=== PATIENT | male | born 1945 | race Caucasian/White ===

== ENCOUNTER → 2018-03-28 09:02 | Outpatient (CLI) | payer MEDICARE, OTHER, SELFPAY ==
[2018-03-28 10:39] LABS: Alanine Aminotransferase 36 IU/L (21-72); Albumin 3.8 g/dL (3.5-5.0); Albumin Globulin Ratio 1.5 (1.0-2.8); Alkaline Phosphatase 67 U/L (38-126); Aspartate Aminotransferase 23 IU/L (17-59); Bilirubin Total 0.9 mg/dL (0.2-1.3); Blood Urea Nitrogen 18 mg/dL (9-20); Calcium 9.3 mg/dL (8.4-10.2); Carbon Dioxide 26 mmol/L (22-32); Chloride 103 mmol/L (98-107); Cholesterol 177 mg/dL (140-199); Estimated Glomerular Filt Rate > 60.0 mL/min (>60); Globulin 2.6 g/dL (1.7-4.1); Glucose 103 mg/dL (80-110); HDL Cholesterol 57 mg/dL (40-60); HEMOLYSIS < 15 (0-50); LDL Cholesterol Calculated 103 mg/dL (<100); Potassium 4.3 mmol/L (3.4-5.1); Sodium 137 mmol/L (137-145); Total Protein 6.4 g/dL (6.3-8.2); Triglycerides 86 mg/dL (35-150)
[2018-03-28 11:03] LABS: Prostate Specific Antigen Scrn 0.576 ng/mL (0.1-4.0)
== END ==
PROVIDERS: PCP Family Medicine; Visit Provider Family Medicine
DX: Z13.1 Encounter for screening for diabetes mellitus (principal); E78.5 Hyperlipidemia, unspecified; Z12.5 Encounter for screening for malignant neoplasm of prostate
CPT/HCPCS: 36415; 80053; 80061; G0103

== ENCOUNTER 2018-04-29 09:26 | Emergency (ER) | payer MEDICARE, OTHER, SELFPAY ==
[2018-04-29 09:32] VITALS: BP 160/90; PULSE 57; RESP 18; TEMP 36.4; O2SAT 96
[2018-04-29 10:18] VITALS: BP 156/79; PULSE 59; RESP 18; O2SAT 100
--- NOTE | 2018-04-29 16:54 | ED_ITS ---
HPI - Extremity Injury (Lower) General Chief Complaint: Extremity Injury, Lower Stated Complaint: INJURED RIGHT LEG Time Seen by Provider: 04/29/18 09:28 Source: patient Mode of arrival: ambulatory Limitations: no limitations History of Present Illness HPI Narrative: 72-year-old male arrival mor choudhury presents with an abrasion to right anterior gandara suffered yesterday. It had been using a bit overnight and patient wanted to be checked to be sure he could still take his blood thinners. He denies any fever chills. He is not dizzy nor weak or lightheaded. complaint: leg injury Onset (ago): hour(s) Type of Injury: blunt Place: home Severity: mild Related Data Home Medications Medication Instructions Recorded Confirmed cyclosporine [Restasis] 1 drp OPH #0 11/23/17 03/28/18 clopidogrel 75 mg tablet 75 mg PO DAILY 03/28/18 03/28/18 lisinopril 5 mg tablet 5 mg PO DAILY 03/28/18 03/28/18 metoprolol succinate ER 100 mg 150 mg PO DAILY tab 03/28/18 03/28/18 tablet,extended release 24 hr pravastatin 80 mg tablet 80 mg PO DAILY 03/28/18 03/28/18 rivaroxaban 20 mg tablet 20 mg PO DAILY 03/28/18 03/28/18 Previous Rx's Medication Instructions Recorded varicella-zoster glycoE [id number] 0.5 ml IM ONCE #1 each 03/28/18 adj(PF) 50 mcg/0.5 mL IM susp, kit doxycycline hyclate 100 mg PO BID #20 tab 04/29/18 Allergies Allergy/AdvReac Type Severity Reaction Status Date / Time amoxicillin [AMOXICILLIN] Allergy Intermediate Unverified 03/28/18 08:30 cephalexin [From KEFLEX] Allergy Intermediate Unverified 03/28/18 08:30 erythromycin base Allergy Intermediate Unverified 03/28/18 08:30 [ERYTHROMYCIN BASE] Wlifome-Mep-Rdl Reductase Allergy Unknown leg pain Unverified 03/28/18 08:30 Inhibitor [[id number] REDUCTASE INHIBITOR] Review of Systems Review of Systems All systems reviewed & are unremarkable except as noted in HPI and below Constitutional Denies chills, Denies fever(s), Denies lethargy and Denies weakness Eyes Denies change in vision, Denies eye discharge, Denies irritation and Denies loss of vision ENT Ears, Nose, Mouth, and Throat: Denies change in voice, Denies neck pain and Denies sore throat Cardiovascular Denies chest pain, Denies irregular heart rhythm, Denies lightheadedness, Denies palpitations, Denies dyspnea, Denies dyspnea on exertion and Denies orthopnea Respiratory Denies cough, Denies dyspnea, Denies dyspnea on exertion and Denies wheezing Gastrointestinal Gastrointestinal: Denies abdominal pain, Denies change in bowel habits, Denies diarrhea, Denies nausea and Denies vomiting Genitourinary Denies hematuria, Denies flank pain, Denies urinary incontinence and Denies urinary urgency Musculoskeletal Denies neck pain Integumentary/Breasts Denies pruritus, Denies erythema, Denies rash and Reports wounds Neurologic Denies confusion, Denies loss of vision and Denies weakness Psychiatric Denies anxiety, Denies confusion, Denies depression, Denies homicidal ideation and Denies suicidal ideation Endocrine Denies palpitations Hematologic/Lymphatic Denies easy bruising Allergic/Immunologic Denies wheezing [facility] Medical History 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) Essential hypertension (11/23/17) History of malignant melanoma (11/23/17) Hyperlipidemia (11/23/17) Atrial fibrillation (Chronic ~11/2013) Hypertension (Chronic ~1979) Kidney stones (Chronic ~2013) Melanoma (Chronic ~2008) Rosacea (Chronic ~1959) Shoulder pain (Chronic ~2016) Chicken pox (Resolved ~1949) Measles (Resolved ~1949) Mumps (Resolved ~1949) Surgical History Arterial occlusion, lower extremity (Chronic) Anesthesia (Resolved) S/P CABG x 6 (Resolved) Status post arthroscopy (~11/2007) Family History Brother Age: 70 Hypertension High cholesterol Father Hypertension High cholesterol Mother Hypertension High cholesterol Sister Down syndrome Social History marital status: occupational status: other (retired) Smoking Status: Never smoker alcohol intake: current (occasional) substance use type: does not use Exam Narrative Exam Narrative: GEN: AOx3 and in mild distress EYES: Pupils are equal, round, and reactive to light and accommodation. Extraoccular muscles are intact bilaterally. There is no subconjunctival hemorrhage or exudate. CHEST: Lungs are clear to auscultation bilaterally and free of wheezes, rales, or rhonchi. Heart rate is regular rhythm, there are no murmurs, clicks, rubs, or gallops. There is no chest wall tenderness. ABD: Abdomen is soft and nontender. There is no guarding or rebound. Bowel sounds are normal in all 4 quadrants. There is no mass or organomegaly. EXT: Superficial abrasion with mild skin tear to right anterior gandara Full painless ROM of all extremities with no loss of sensation or strength. SKIN: Warm, pink, and dry. No erythema or rash Initial Vital Signs Initial Vital Signs: Vital Signs Temperature 97.5 F L 04/29/18 09:32 Pulse Rate 57 L 04/29/18 09:32 Respiratory Rate 18 04/29/18 09:32 Blood Pressure 160/90 H 04/29/18 09:32 Pulse Oximetry 96 04/29/18 09:32 Course Vital Signs - 8 hr 04/29/18 09:32 04/29/18 10:18 Temperature 97.5 F L Pulse Rate 57 L 59 L Respiratory Rate 18 18 Blood Pressure 160/90 H Blood Pressure [Right Arm] 156/79 H Pulse Oximetry 96 100 Discharge Plan Departure Patient Disposition: Home, Self-Care Clinical Impression: Abrasion Discharge Date/Time: 04/29/18 10:20 Interventions: ED Discharge Assessment Last Done: 04/29/18 10:19 Instructions: DI for Abrasion Activity Restrictions/Additional Instructions: *You have been diagnosed with [abrasion right lower extremity ] *What to do: *Take medications as directed: Take antibiotic prescription if he shows signs of infection such as worsening redness, swelling, drainage or other symptoms consistent with infection *Follow up with your primary care provider in 2-3 days, call for an appointment. Let them know you were seen in the Emergency Department and that we ask that you be seen in follow up *Return to ER if you should have any new, worsening or concerning symptoms Prescriptions: New doxycycline hyclate 100 mg tablet 100 mg PO BID Qty: 20 RF: 0 No Action cyclosporine [Restasis] 1 EACH dropperette 1 drp OPHTH Qty: 0 RF: 0 rivaroxaban [Xarelto] 20 mg tablet 20 mg PO DAILY RF: 0 metoprolol succinate 100 mg tablet extended release 24 hr 150 mg PO DAILY RF: 0 lisinopril 5 mg tablet 5 mg PO DAILY RF: 0 pravastatin 80 mg tablet 80 mg PO DAILY RF: 0 clopidogrel 75 mg tablet 75 mg PO DAILY RF: 0 varicella-zoster [id number] (PF) [Shingrix (PF)] 50 mcg/0.5 mL suspension for reconstitution 0.5 ml IM ONCE Qty: 1 RF: 1
== END 2018-04-29 10:20 | disposition home or self-care (01) ==
PROVIDERS: Emergency Provider Emergency Medicine; PCP Family Medicine
DX: S80.811A Abrasion, right lower leg, initial encounter (principal); W01.0XXA Fall on same level from slipping, tripping and stumbling without subsequent striking against object, initial encounter
CPT/HCPCS: 99282; 99283

== ENCOUNTER 2018-07-18 05:38 | Emergency (ER) | payer MEDICARE, OTHER, SELFPAY ==
[2018-07-18] VITALS (8 sets, daily range): BP systolic 123–152; BP diastolic 79–92; PULSE 52–61; RESP 12–20; TEMP 36.2; O2SAT 96–99; BMI 38.2
--- NOTE | 2018-07-18 06:39 | DI.US.S_ITS ---
PROCEDURE: US PERIPH VENOUS LOW EXTREM LT INDICATIONS: PAIN TECHNIQUE: Real-time imaging, as well as color and pulse Doppler interrogation, were performed of the lower extremity deep veins from the inguinal ligament to the popliteal fossa. COMPARISON: None. FINDINGS: The deep veins are normally compressible, and free of intraluminal thrombus. Color and pulse Doppler demonstrate normal phasic intraluminal flow. There is normal augmentation response to distal compression maneuver. IMPRESSION: No visualized deep venous thrombosis. Dictated by: Xin Hall M.D. on 07/18/2018 at 8:23 Approved by: Xin Hall M.D. on 07/18/2018 at 8:23
--- NOTE | 2018-07-18 06:39 | DI.US.S_ITS ---
PROCEDURE: US ARTERIAL DUPLEX LE LT INDICATIONS: PAIN; HX PAD WITH POPLITEAL STENT TECHNIQUE: Color and pulse Doppler interrogation was performed of the left lower extremity arterial system, with image documentation. COMPARISON: [facility], ARTERIAL LOW.EXTREMITY UNILAT., 10/06/2014, 11:51. [facility], ARTERIAL LOW.EXTREMITY UNILAT., 12/19/2015, 21:05. FINDINGS: Common femoral artery: 69 cm/sec, with triphasic flow. Deep femoral artery: 146 cm/sec, with biphasic flow. Proximal superficial femoral artery: 41 cm/sec, with biphasic flow. Mid superficial femoral artery: 27 cm/sec, with monophasic flow. Distal superficial femoral artery: 66 cm/sec, with biphasic flow. Popliteal artery: No visualized flow. Stent is noted. Posterior tibial artery: No visualized flow. Anterior tibial artery/dorsalis pedis: No visualized flow. Vasquez-scale imaging description: Distal superficial femoral/popliteal stent is present and appears occluded. Plaque is present IMPRESSION: 1. No visualized flow from the popliteal artery distally. Stent appears occluded. It is noted that overall study is relatively unchanged compared to 12/19/15 which demonstrated diminutive flow in the distal superficial femoral and no visualized flow within the popliteal posterior or anterior tibial arteries. In addition, no visualized flow is identified in the popliteal artery or anterior tibial artery with only minimal monophasic flow in the posterior tibial artery on 10/06/14. Dictated by: Xin Hall M.D. on 07/18/2018 at 8:23 Approved by: Xin Hall M.D. on 07/18/2018 at 8:28
[2018-07-18 07:20] LABS: BUN Creatinine Ratio 23.3 (6-22); Blood Urea Nitrogen 21 mg/dL (9-20); Calcium 8.6 mg/dL (8.4-10.2); Carbon Dioxide 22 mmol/L (22-32); Chloride 107 mmol/L (98-107); Estimated Glomerular Filt Rate > 60.0 mL/min (>60); Glucose 106 mg/dL (80-110); HEMOLYSIS < 15 (0-50); Potassium 4.2 mmol/L (3.4-5.1); Sodium 139 mmol/L (137-145)
--- NOTE | 2018-07-18 07:20 | ED.EXTPRO ---
HPI - Extremity Problem General Chief complaint: Extremity Problem,Nontraumatic Stated complaint: PAIN LEFT LEG, HAS HAD BLOOD CLOT BEFORE Time Seen by Provider: 07/18/18 06:06 Source: patient Mode of arrival: ambulatory Limitations: no limitations History of Present Illness HPI Narrative: patient is a 73-year-old male who is had a 4 vessel coronary artery bypass and also bilateral popliteal stents. Back in 2016 he had a femoral popliteal bypass in his right lower extremity secondary to stent failure in this leg. He has also had a stent failure in his left lower extremity that has required tPA. He states that last evening he started having pain in the front and the outside portion of his left lower extremity. He states that since the onset of the symptoms they have greatly improved. Denies any fevers or chest pain or shortness of breath. He is currently on Rivaroxaban and Plavix and has been taking these medications. Related Data Home Medications Medication Instructions Recorded Confirmed cyclosporine [Restasis] 1 drp OPHTH BID #0 11/23/17 07/18/18 rivaroxaban [Xarelto] 1 tab PO DAILY 07/18/18 07/18/18 Previous Rx's Medication Instructions Recorded pravastatin 80 mg tablet 80 mg PO DAILY #90 tab 05/16/18 clopidogrel 75 mg tablet 75 mg PO DAILY #30 tab 06/27/18 lisinopril 5 mg tablet 5 mg PO DAILY #30 tab 06/27/18 metoprolol succinate ER 100 mg 150 mg PO DAILY #60 tab 06/27/18 tablet,extended release 24 hr Allergies Allergy/AdvReac Type Severity Reaction Status Date / Time amoxicillin [AMOXICILLIN] Allergy Intermediate Unverified 05/05/18 11:51 cephalexin [From KEFLEX] Allergy Intermediate Unverified 05/05/18 11:51 erythromycin base Allergy Intermediate Unverified 05/05/18 11:51 [ERYTHROMYCIN BASE] Xvbjtdo-Ruo-Xuv Reductase Allergy Unknown leg pain Unverified 05/05/18 11:51 Inhibitor [SWFNDFI-REG-MAR REDUCTASE INHIBITOR] Review of Systems Constitutional Denies headache(s) ENT Ears, Nose, Mouth, and Throat: Denies headache(s) Cardiovascular Denies chest pain and Denies dyspnea Respiratory Denies dyspnea Gastrointestinal Gastrointestinal: Denies abdominal pain, Denies nausea and Denies vomiting Musculoskeletal Reports myalgias ( left calf muscle), Denies arthralgias, Reports muscle cramps and Denies numbness Integumentary/Breasts Denies lesions and Denies rash Neurologic Denies headache(s), Denies focal weakness, Denies numbness, Denies radicular pain and Denies paresthesias Hematologic/Lymphatic Comments: on anticoagulation [facility] Medical History Coronary artery disease involving [place] coronary artery of [place] heart without angina pectoris (11/23/17) Essential hypertension (11/23/17) History of malignant melanoma (11/23/17) Hyperlipidemia (11/23/17) Atrial fibrillation (Chronic ~11/2013) Hypertension (Chronic ~1979) Kidney stones (Chronic ~2013) Melanoma (Chronic ~2008) Rosacea (Chronic ~1959) Shoulder pain (Chronic ~2016) Chicken pox (Resolved ~1949) Measles (Resolved ~1949) Mumps (Resolved ~1949) Surgical History Arterial occlusion, lower extremity (Chronic) Anesthesia (Resolved) S/P CABG x 6 (Resolved) Status post arthroscopy (~11/2007) Family History Brother Age: 70 Hypertension High cholesterol Father Hypertension High cholesterol Mother Hypertension High cholesterol Sister Down syndrome Social History marital status: occupational status: other (retired) Smoking Status: Never smoker alcohol intake: current (occasional) substance use type: does not use Exam Initial Vital Signs Initial Vital Signs: Vital Signs Temperature 97.2 F L 07/18/18 05:54 Pulse Rate 61 07/18/18 05:54 Respiratory Rate 20 07/18/18 05:54 Blood Pressure 146/84 H 07/18/18 05:54 Pulse Oximetry 97 07/18/18 05:54 Const General: cooperative, healthy appearing, comfortable, well developed, well groomed and No acute distress Orientation: alert, awake and oriented x3 HENMT Head: normal to inspection and normocephalic Resp Effort & Inspection: normal respiratory effort Auscultation: clear to auscultation bilaterally Cardio Rate: regular rate Rhythm: regular rhythm Other: capillary refill 6 sec in the left lower extremity. Unable to palpate nor Doppler a DP pulse on the left. I was able to Doppler a posterior tibial pulse on the left. Skin Lesions: no lesions Rashes: no rashes Neuro Motor: muscle tone normal throughout Sensory Exam: no sensory deficits noted Extrem Left lower extremity: normal to inspection; abnormal capillary refill and no edema Psych Appearance: grossly normal and well kempt Course Orders Ordered: ED Orders 07/18/18 06:39 US arterial duplex LE LT Stat US periph venous low extrem lt Stat 07/18/18 06:56 Basic Metabolic Panel Stat Complete Blood Count AUTO DIFF Stat 07/18/18 08:31 CT angio abd aorta runoff Stat Heparin Sodium/Dextrose (Heparin Drip) 25,000 unit in 500 mls @ 37.557 mls/hr IV CONT BRIDGET; Protocol Last Admin: 07/18/18 11:13 Dose: 18 units/kg/hr, 37.557 mls/hr Discontinued Medications Heparin Sodium (Porcine) (Heparin) 5,000 unit IV NOW ONE Stop: 07/18/18 10:59 Last Admin: 07/18/18 11:13 Dose: 5,000 unit Sodium Chloride (Normal Saline 0.9%) 1,000 mls @ 1,000 mls/hr IV BOLUS ONE Stop: 07/18/18 08:49 Last Infusion: 07/18/18 09:29 Dose: 0 mls/hr Admin: 07/18/18 08:38 Dose: 1,000 mls/hr Vital Signs - 8 hr 07/18/18 05:54 07/18/18 06:24 07/18/18 08:17 Temperature 97.2 F L 97.2 F L Pulse Rate 61 61 56 L Pulse Rate [Left Posterior Tibial] Respiratory Rate 20 20 19 Blood Pressure [Right Arm] 146/84 H 123/79 Pulse Oximetry 97 97 96 07/18/18 08:56 07/18/18 09:28 07/18/18 11:31 Temperature Pulse Rate 52 L 54 L Pulse Rate [Left Posterior Tibial] 56 L Respiratory Rate 14 16 Blood Pressure [Right Arm] 152/79 H 131/92 H Pulse Oximetry 98 98 MDM - Extremity (Nontraumatic) Lab Data Result diagrams: 07/18/18 06:56 07/18/18 06:56 Lab Results 07/18/18 07/18/18 Range/Units 06:56 06:56 WBC 6.7 (4.5-11.0) X10^3/uL RBC 4.82 (4.5-5.9) X10^6/uL Hgb 15.5 (13.5-17.5) g/dL Hct 45.2 (41-53) % MCV 93.7 (80-100) fL MCH 32.2 (26-34) PG MCHC 34.4 (30-36) % RDW 12.7 (11.6-14.8) % Plt Count 151 (150-400) X10^3/uL Neut % (Auto) 67.0 (50-75) % Lymph % (Auto) 21.9 L (25-40) % [place] % (Auto) 9.4 (3-14) % Eos % (Auto) 1.3 L (2-4) % Baso % (Auto) 0.4 (0-2) % Neut # (Auto) 4500 (3271-7447) /uL Sodium 139 (137-145) mmol/L Potassium 4.2 (3.4-5.1) mmol/L Chloride 107 (98-107) mmol/L Carbon Dioxide 22 (22-32) mmol/L BUN 21 H (9-20) mg/dL Creatinine 0.90 (0.66-1.25) mg/dL Estimated GFR > 60.0 (>60) mL/min BUN/Creatinine Ratio 23.3 H (6-22) Glucose 106 (80-110) mg/dL Calcium 8.6 (8.4-10.2) mg/dL Imaging Data DVT ultrasound: Radiologist's impression: [address] [address] Ultrasound Report Signed Patient: Scott Hines#: [id number] : 4Acct:[id number] Age/Sex: 73 / MDate of Service: 07/18/18 Loc: ED Accession Number: [id number] Procedure: US periph venous low extrem lt Ordering Provider: Elva Llanes D.O. PROCEDURE: US PERIPH VENOUS LOW EXTREM LT INDICATIONS: PAIN TECHNIQUE: Real-time imaging, as well as color and pulse Doppler interrogation, were performed of the lower extremity deep veins from the inguinal ligament to the popliteal fossa. COMPARISON: None. FINDINGS: The deep veins are normally compressible, and free of intraluminal thrombus. Color and pulse Doppler demonstrate normal phasic intraluminal flow. There is normal augmentation response to distal compression maneuver. IMPRESSION: No visualized deep venous thrombosis. Dictated by: Xin Hall M.D. on 07/18/2018 at 8:23 Approved by: Xin Hall M.D. on 07/18/2018 at 8:23 arterial duplex ultrasound: Radiologist's impression: [address] [address] Ultrasound Report Signed Patient: Scott Hines#: [id number] : 4Acct:[id number] Age/Sex: 73 / MDate of Service: 07/18/18 Loc: ED Accession Number: [id number] Procedure: US arterial duplex LE LT Ordering Provider: Elva Llanes D.O. PROCEDURE: US ARTERIAL DUPLEX LE LT INDICATIONS: PAIN; HX PAD WITH POPLITEAL STENT TECHNIQUE: Color and pulse Doppler interrogation was performed of the left lower extremity arterial system, with image documentation. COMPARISON: [facility], ARTERIAL LOW.EXTREMITY UNILAT., 10/06/2014, 11:51. [facility], , ARTERIAL LOW.EXTREMITY UNILAT., 12/19/2015, 21:05. FINDINGS: Common femoral artery: 69 cm/sec, with triphasic flow. Deep femoral artery: 146 cm/sec, with biphasic flow. Proximal superficial femoral artery: 41 cm/sec, with biphasic flow. Mid superficial femoral artery: 27 cm/sec, with monophasic flow. Distal superficial femoral artery: 66 cm/sec, with biphasic flow. Popliteal artery: No visualized flow. Stent is noted. Posterior tibial artery: No visualized flow. Anterior tibial artery/dorsalis pedis: No visualized flow. Vasquez-scale imaging description: Distal superficial femoral/popliteal stent is present and appears occluded. Plaque is present IMPRESSION: 1. No visualized flow from the popliteal artery distally. Stent appears occluded. It is noted that overall study is relatively unchanged compared to 12/19/15 which demonstrated diminutive flow in the distal superficial femoral and no visualized flow within the popliteal posterior or anterior tibial arteries. In addition, no visualized flow is identified in the popliteal artery or anterior tibial artery with only minimal monophasic flow in the posterior tibial artery on 10/06/14. Dictated by: Xin Hall M.D. on 07/18/2018 at 8:23 Approved by: Xin Hall M.D. on 07/18/2018 at 8:28 CTA bilateral lower extremity: Radiologist's impression: PROCEDURE: CT ANGIO ABD AORTA RUNOFF INDICATIONS: Popliteal graft, 6 sec cap refill, calf pain left TECHNIQUE: After the administration of intravenous contrast, 2.5 mm sections acquired from S1 to the feet, with delayed image acquisition from the knees to the feet. 3-dimensional maximum intensity projection (MIP) coronal and sagittal reformats, and/or 3-dimensional volume rendering reformatting was then performed. For radiation dose reduction, the following was used: automated exposure control. COMPARISON: [facility], ARTERIAL LOW.EXTREMITY UNILAT., 10/06/2014, 11:51. [facility], US ARTERIAL DUPLEX LE LT, 07/18/2018, 7:27. FINDINGS: Image quality: Excellent. Extravascular pelvic structures: The visualized bowel loops are normal in caliber. There is colonic diverticulosis noted. The urinary bladder demonstrates normal wall thickness. No intraperitoneal free fluid visualized. No pelvic lymphadenopathy. Visualized osseous structures appear intact. There is a small fat-containing left inguinal hernia. The abdominal aorta, aortic bifurcation and proximal common iliac arteries were not included on the current study. Right lower extremity: The visualized common iliac artery demonstrates mild atherosclerotic plaque without focal high-grade stenosis. The external iliac artery is widely patent along its course. The internal iliac artery demonstrates mild multifocal atherosclerotic plaque without definite high-grade stenosis. The common femoral artery demonstrates mild calcified plaque without high-grade stenosis. The deep femoral artery there is patent proximally to the level of the mid femoral shaft where there is decreased enhancement suggestive of high-grade stenosis or occlusion. The superficial femoral artery demonstrates mild multifocal calcified plaque along its course. There is focal narrowing in the distal superficial femoral artery with approximately 50% stenosis. More distally, there is a popliteal bypass graft which appears patent and connects to the distal popliteal artery. The [place] bypassed popliteal artery is occluded with aneurysmal dilatation noted as well as an occluded stent. The tibialis anterior is widely patent proximally. There is multifocal narrowing along the course of the tibialis anterior which appears grossly patent to the level of the dorsalis pedis artery. The tibioperoneal trunk demonstrates calcified plaque distally with associated narrowing of less than 50%. The posterior tibial artery is patent along its course extending to ankle. The peroneal artery also appears patent to level of the distal tibia and fibula where there is nonvisualized enhancement suggestive of occlusion or high-grade stenosis. There is a two-vessel runoff at the level of the ankle. Left lower extremity: The visualized common iliac artery demonstrates calcified plaque with mild narrowing. The internal iliac artery demonstrates multifocal calcified and noncalcified plaque with a focal high-grade stenosis proximally . More distal segments and branches also demonstrate multifocal calcified plaque but appear grossly patent. The external iliac artery demonstrates mild multifocal plaque along its course without focal high-grade stenosis. The common femoral artery demonstrates mild calcified plaque without high-grade stenosis. The deep femoral artery appears patent along its course. The superficial femoral artery demonstrates multifocal calcified and noncalcified plaque along its course with progressive luminal narrowing beginning in the mid superficial femoral artery. The distal superficial femoral artery demonstrates non-enhancement consistent with occlusion. There is also occlusion of the popliteal artery. There is reconstitution of the tibialis anterior artery near its origin with multifocal narrowing along its course. The distal segment is not well opacified beginning at the level of the distal tibia compatible with high-grade stenosis or occlusion. There is also reconstitution of flow in the posterior tibial and peroneal arteries at their origins with mild multifocal narrowing along their courses. These appear grossly patent to the level of the ankle. There is a two-vessel runoff at the level of the ankle. IMPRESSION: 1. Progressive stenosis demonstrated in the left superficial femoral artery beginning in its mid segment with occlusion of the distal segment as well as occlusion of the popliteal artery. 2. Reconstitution of flow in the left tibialis anterior artery near its origin with multifocal narrowing along its course extending to the level of the distal tibia where there is subsequent probable occlusion. 3. Reconstitution of flow in the left posterior tibial and peroneal arteries which appear grossly patent to the level of the ankle. 4. Patent right popliteal bypass graft demonstrated. 5. Probable occlusion of the distal right peroneal artery at the level of the distal tibia. The tibialis anterior and posterior tibial arteries appear grossly patent at the level of the ankle. 6. Focal narrowing of approximately 50% in the distal right superficial femoral artery. Right deep femoral artery appears occluded at the level of the mid femur. Dictated by: Campbell Jordan M.D. on 07/18/2018 at 9:22 Approved by: Campbell Jordan M.D. on 07/18/2018 at 9:53 MDM Narrative Medical decision making narrative: patient with CT scan findings concerning for left popliteal artery occlusion. Discussed the case with BALDO Benavidez with the vascular surgery group at [facility]. I described the results of the CT scan to him. After this discussion and started the patient on heparin. He called back and stated that the patient could be transferred to [place]. Dr. Woods is the accepting provider. I discussed the transfer with the patient and his family who are bedside. They expressed understanding and agreement. Discharge Plan Departure Patient Disposition: [facility] Clinical Impression: Left popliteal artery occlusion Prescriptions: No Action cyclosporine [Restasis] 1 EACH drop[place] 1 drp OPHTH BID Qty: 0 RF: 0 pravastatin 80 mg tablet 80 mg PO DAILY Qty: 90 RF: 3 clopidogrel 75 mg tablet 75 mg PO DAILY Qty: 30 RF: 3 lisinopril 5 mg tablet 5 mg PO DAILY Qty: 30 RF: 3 metoprolol succinate 100 mg tablet extended release 24 hr 150 mg PO DAILY Qty: 60 RF: 3 rivaroxaban [Xarelto] 20 mg tablet 1 tab PO DAILY RF: 0
[2018-07-18 07:21] LABS: Add Manual Diff / Slide Review NO; Basophils Percent Auto 0.4 % (0-2); Eosinophils Percent Auto 1.3 % (2-4); Hematocrit 45.2 % (41-53); Hemoglobin 15.5 g/dL (13.5-17.5); Lymphocytes Percent Auto 21.9 % (25-40); Mean Corpuscular HGB Conc 34.4 % (30-36); Mean Corpuscular Hemoglobin 32.2 PG (26-34); Mean Corpuscular Volume 93.7 fL (80-100); Monocytes Percent Auto 9.4 % (3-14); Neutrophils Absolute Auto 4500 /uL (3000-5900); Platelet Count 151 X10^3/uL (150-400); Red Blood Cell Count 4.82 X10^6/uL (4.5-5.9); Red Cell Distribution Width 12.7 % (11.6-14.8); White Blood Cell Count 6.7 X10^3/uL (4.5-11.0)
--- NOTE | 2018-07-18 08:31 | DI.CT.S_ITS ---
PROCEDURE: CT ANGIO ABD AORTA RUNOFF INDICATIONS: Popliteal graft, 6 sec cap refill, calf pain left TECHNIQUE: After the administration of intravenous contrast, 2.5 mm sections acquired from S1 to the feet, with delayed image acquisition from the knees to the feet. 3-dimensional maximum intensity projection (MIP) coronal and sagittal reformats, and/or 3-dimensional volume rendering reformatting was then performed. For radiation dose reduction, the following was used: automated exposure control. COMPARISON: [facility], , ARTERIAL LOW.EXTREMITY UNILAT., 10/06/2014, 11:51. [facility], , US ARTERIAL DUPLEX LE LT, 07/18/2018, 7:27. FINDINGS: Image quality: Excellent. Extravascular pelvic structures: The visualized bowel loops are normal in caliber. There is colonic diverticulosis noted. The urinary bladder demonstrates normal wall thickness. No intraperitoneal free fluid visualized. No pelvic lymphadenopathy. Visualized osseous structures appear intact. There is a small fat-containing left inguinal hernia. The abdominal aorta, aortic bifurcation and proximal common iliac arteries were not included on the current study. Right lower extremity: The visualized common iliac artery demonstrates mild atherosclerotic plaque without focal high-grade stenosis. The external iliac artery is widely patent along its course. The internal iliac artery demonstrates mild multifocal atherosclerotic plaque without definite high-grade stenosis. The common femoral artery demonstrates mild calcified plaque without high-grade stenosis. The deep femoral artery there is patent proximally to the level of the mid femoral shaft where there is decreased enhancement suggestive of high-grade stenosis or occlusion. The superficial femoral artery demonstrates mild multifocal calcified plaque along its course. There is focal narrowing in the distal superficial femoral artery with approximately 50% stenosis. More distally, there is a popliteal bypass graft which appears patent and connects to the distal popliteal artery. The [place] bypassed popliteal artery is occluded with aneurysmal dilatation noted as well as an occluded stent. The tibialis anterior is widely patent proximally. There is multifocal narrowing along the course of the tibialis anterior which appears grossly patent to the level of the dorsalis pedis artery. The tibioperoneal trunk demonstrates calcified plaque distally with associated narrowing of less than 50%. The posterior tibial artery is patent along its course extending to ankle. The peroneal artery also appears patent to level of the distal tibia and fibula where there is nonvisualized enhancement suggestive of occlusion or high-grade stenosis. There is a two-vessel runoff at the level of the ankle. Left lower extremity: The visualized common iliac artery demonstrates calcified plaque with mild narrowing. The internal iliac artery demonstrates multifocal calcified and noncalcified plaque with a focal high-grade stenosis proximally . More distal segments and branches also demonstrate multifocal calcified plaque but appear grossly patent. The external iliac artery demonstrates mild multifocal plaque along its course without focal high-grade stenosis. The common femoral artery demonstrates mild calcified plaque without high-grade stenosis. The deep femoral artery appears patent along its course. The superficial femoral artery demonstrates multifocal calcified and noncalcified plaque along its course with progressive luminal narrowing beginning in the mid superficial femoral artery. The distal superficial femoral artery demonstrates non-enhancement consistent with occlusion. There is also occlusion of the popliteal artery. There is reconstitution of the tibialis anterior artery near its origin with multifocal narrowing along its course. The distal segment is not well opacified beginning at the level of the distal tibia compatible with high-grade stenosis or occlusion. There is also reconstitution of flow in the posterior tibial and peroneal arteries at their origins with mild multifocal narrowing along their courses. These appear grossly patent to the level of the ankle. There is a two-vessel runoff at the level of the ankle. IMPRESSION: 1. Progressive stenosis demonstrated in the left superficial femoral artery beginning in its mid segment with occlusion of the distal segment as well as occlusion of the popliteal artery. 2. Reconstitution of flow in the left tibialis anterior artery near its origin with multifocal narrowing along its course extending to the level of the distal tibia where there is subsequent probable occlusion. 3. Reconstitution of flow in the left posterior tibial and peroneal arteries which appear grossly patent to the level of the ankle. 4. Patent right popliteal bypass graft demonstrated. 5. Probable occlusion of the distal right peroneal artery at the level of the distal tibia. The tibialis anterior and posterior tibial arteries appear grossly patent at the level of the ankle. 6. Focal narrowing of approximately 50% in the distal right superficial femoral artery. Right deep femoral artery appears occluded at the level of the mid femur. Dictated by: Campbell Jordan M.D. on 07/18/2018 at 9:22 Approved by: Campbell Jordan M.D. on 07/18/2018 at 9:53
[2018-07-18] MEDS: SODIUM CHLORIDE 0.9% 1,000 ML 1000 ML IV (08:38)
[2018-07-18] MEDS: HEPARIN DRIP 25,000 UNIT/500 ML IV.SOLN 37.557 UNIT IV (11:13)
[2018-07-18] MEDS: HEPARIN 5,000 UNIT/ML VIAL 5000 UNIT IV (11:13)
== END 2018-07-18 13:20 | disposition short-term general hospital (02) ==
PROVIDERS: Emergency Medicine; Emergency Provider Emergency Medicine; PCP Family Medicine
DX: I70.202 Unspecified atherosclerosis of native arteries of extremities, left leg (principal)
CPT/HCPCS: 36591; 75635; 80048; 85025; 93926; 93971; 96361; 96365; 96366; 99284; 99285; J1644; Q9967

== ENCOUNTER 2019-04-18 20:02 | Emergency (ER) | payer MEDICARE, OTHER, SELFPAY ==
[2019-04-18 20:07] VITALS: BMI 30.9
[2019-04-18 20:15] VITALS: BP 146/66; PULSE 67; RESP 18; O2SAT 96
--- NOTE | 2019-04-18 20:16 | ED.EXTPRO ---
HPI - Extremity Problem <Lisa MoctezumaTYLOR - Last Filed: 04/18/19 21:56> General Chief complaint: Extremity Problem,Nontraumatic Stated complaint: rt elbow hot, swelling and pain Time Seen by Provider: 04/18/19 20:05 Source: patient Mode of arrival: ambulatory Limitations: no limitations History of Present Illness HPI Narrative: 73-year-old male with a history of hypertension, coronary artery disease, hyperlipidemia, and melanoma, presents emergency department today complaining of right elbow swelling, increased warmth, and slight dull 1/10 pain that is worse with pressure on the area starting this morning. She denies any trauma or previous injury to the area. He states he has had cellulitis before and this feels very similar. He denies any fevers, chills, nausea, vomiting, chest pain, shortness of breath, difficulty moving his arms, wrists, elbows, fingers, or hands. He denies any vision changes or headaches, he denies any autoimmune arthritis or gout. He states he has been applying ice to the area which has helped a little bit. MD Complaint: extremity swelling Onset (ago): hour(s) Pain Consistency: constant Location: right Severity scale (1-10): 1 Quality: aching Radiation: none Relieving factors: nothing Exacerbating factors: nothing Related Data Home Medications Medication Instructions Recorded Confirmed cyclosporine [Restasis] 1 drp OPHTH BID #0 11/23/17 07/18/18 Previous Rx's Medication Instructions Recorded pravastatin 80 mg tablet 80 mg PO DAILY #90 tab 05/16/18 clopidogrel 75 mg tablet 75 mg PO DAILY #90 tab 07/24/18 lisinopril 5 mg tablet 5 mg PO DAILY #90 tab 07/24/18 metoprolol succinate ER 100 mg 150 mg PO DAILY #135 tab 07/24/18 tablet,extended release 24 hr warfarin 2 mg tablet 2 mg PO DAILY #135 tab 07/24/18 doxycycline hyclate 100 mg PO BID 7 Days #14 tab 04/18/19 Allergies Allergy/AdvReac Type Severity Reaction Status Date / Time amoxicillin [AMOXICILLIN] Allergy Intermediate Verified 04/18/19 20:10 cephalexin [From KEFLEX] Allergy Intermediate Verified 04/18/19 20:10 erythromycin base Allergy Intermediate Verified 04/18/19 20:10 [ERYTHROMYCIN BASE] Clxggsp-Fjm-Sth Reductase Allergy Unknown leg pain Verified 04/18/19 20:10 Inhibitor [[id number] REDUCTASE INHIBITOR] Review of Systems <TYLOR Dodd - Last Filed: 04/18/19 21:56> Review of Systems REVIEW OF SYSTEMS: GENERAL: Denies fever or chills. HENT: No head trauma. EYES: No double vision or vision loss. CARDIOVASCULAR: No chest pain or syncope. RESPIRATORY: No shortness of breath or cough. GASTROINTESTINAL: No nausea, vomiting, diarrhea, or constipation. GENITOURINARY: No flank pain or dysuria. MUSCULOSKELETAL: Complains of right elbow pain, see HPI. INTEGUMENTARY: Complains of a erythema to right elbow, see HPI. NEURO: No numbness, tingling. PSYCH: No behavior or mood changes. PFSH <TYLOR Dodd - Last Filed: 04/18/19 21:56> Medical History Coronary artery disease involving [place] coronary artery of [place] heart without angina pectoris (11/23/17) Essential hypertension (11/23/17) History of malignant melanoma (11/23/17) Hyperlipidemia (11/23/17) Atrial fibrillation (Chronic ~11/2013) Hypertension (Chronic ~1979) Kidney stones (Chronic ~2013) Melanoma (Chronic ~2008) Rosacea (Chronic ~1959) Shoulder pain (Chronic ~2016) Chicken pox (Resolved ~1950) Measles (Resolved ~1950) Mumps (Resolved ~1950) Surgical History Arterial occlusion, lower extremity (Chronic) Anesthesia (Resolved) S/P CABG x 6 (Resolved) Status post arthroscopy (~11/2007) Family History Brother Age: 71 Hypertension High cholesterol Father Hypertension High cholesterol Mother Hypertension High cholesterol Sister Down syndrome Social History marital status: household members: spouse lives independently: Yes occupational status: other (retired) Smoking Status: Never smoker alcohol intake: current (occasional) substance use type: does not use Family History Brother Age: 71 Hypertension High cholesterol Father Hypertension High cholesterol Mother Hypertension High cholesterol Sister Down syndrome Social History marital status: household members: spouse lives independently: Yes occupational status: other (retired) Smoking Status: Never smoker alcohol intake: current (occasional) substance use type: does not use Exam <TYLOR Dodd - Last Filed: 04/18/19 21:56> Initial Vital Signs Initial Vital Signs: Vital Signs Pulse Rate 67 04/18/19 20:15 Respiratory Rate 18 04/18/19 20:15 Blood Pressure 146/66 H 04/18/19 20:15 Pulse Oximetry 96 04/18/19 20:15 PHYSICAL EXAMINATION: GENERAL: Well groomed, alert, and cooperative. Answers questions promptly and appropriately. Vital signs noted. HENT: Normocephalic, atraumatic. RESPIRATORY: Normal respiratory rate, trachea midline, airway patent. No stridor, nasal flaring or accessory muscle use. MUSCULOSKELETAL: Right elbow exists if it is 10 cm in diameter area of erythema, bursitis is intact without inflammation, patient exhibits full range of motion of elbow, wrist, and shoulder without pain or rigidity. No ecchymosis or lacerations. Normal gait and coordination. Equal tone and mass bilaterally. EXTREMITIES: CMS intact. Moves all extremities. SKIN: Warm, dry, soft, appropriate color for ethnicity. 10 cm in diameter erythema to right elbow. NEURO: Alert and Oriented X 3. Good coordination. PSYCH: Appropriate affect and mood. <Franco Read MD - Last Filed: 04/19/19 00:38> Initial Vital Signs Initial Vital Signs: Vital Signs Pulse Rate 67 04/18/19 20:15 Respiratory Rate 18 04/18/19 20:15 Blood Pressure 146/66 H 04/18/19 20:15 Pulse Oximetry 96 04/18/19 20:15 Course <TYLOR Dodd - Last Filed: 04/18/19 21:56> Orders Ordered: Discontinued Medications Doxycycline Hyclate (Vibramycin) 100 mg PO NOW ONE Stop: 04/18/19 20:15 Last Admin: 04/18/19 20:22 Dose: 100 mg Consultations Consultation #1: Patient was also evaluated by Dr. Read. Vital Signs - 8 hr 04/18/19 20:15 04/18/19 20:20 04/18/19 21:10 Temperature 98.4 F Pulse Rate 67 71 72 Respiratory Rate 18 20 20 Blood Pressure 130/59 L Blood Pressure [Left Arm] 146/66 H 148/86 H Pulse Oximetry 96 97 98 <Franco Read MD - Last Filed: 04/19/19 00:38> Orders Ordered: Discontinued Medications Doxycycline Hyclate (Vibramycin) 100 mg PO NOW ONE Stop: 04/18/19 20:15 Last Admin: 04/18/19 20:22 Dose: 100 mg Vital Signs - 8 hr 04/18/19 20:15 04/18/19 20:20 04/18/19 21:10 Temperature 98.4 F Pulse Rate 67 71 72 Respiratory Rate 18 20 20 Blood Pressure 130/59 L Blood Pressure [Left Arm] 146/66 H 148/86 H Pulse Oximetry 96 97 98 MDM - Extremity (Nontraumatic) <TYLOR Dodd - Last Filed: 04/18/19 21:56> MDM Narrative Medical decision making narrative: Differential includes cellulitis (most likely due to erythema, recent onset, lack of other systemic symptoms, history of cellulitis in the past), less likely fracture due to lack of traumatic injury, less likely sepsis due to lack of systemic symptoms such as fever, less likely bursitis due to lack of bursal swelling as well as patient retains full range of motion without pain.. Strict return precautions given and follow-up instructions discussed. Patient was given doxycycline as he stated this worked last time he had cellulitis and states that he is very allergic to other antibiotics as listed.. Discharge Plan Departure Patient Disposition: Home Clinical Impression: Cellulitis Qualifiers: Site of cellulitis: extremity Site of cellulitis of extremity: upper extremity Laterality: right Qualified Code(s): L03.113 - Cellulitis of right upper limb Discharge Date/Time: 04/18/19 21:20 Interventions: ED Discharge Assessment Last Done: 04/18/19 21:10 Instructions: DI for Cellulitis -- Adult Activity Restrictions/Additional Instructions: Thank you for entrusting me with your care today. As discussed, appears you have an infection of the skin on your right elbow. I prescribed you doxycycline. Please take as directed and follow up with her primary care provider in the next week to ensure that you are getting better. Please follow-up with her anticoagulation clinic in the next few days as this antibiotic may interfere with your warfarin. Return to the emergency department if you develop fevers, chest pain, shortness of breath, increased redness, severe pain, shortness of breath, or swelling of your mouth or tongue. Prescriptions: New doxycycline hyclate 100 mg tablet 100 mg PO BID 7 Days Qty: 14 RF: 0 No Action cyclosporine [Restasis] 1 EACH dropperette 1 drp OPHTH BID Qty: 0 RF: 0 pravastatin 80 mg tablet 80 mg PO DAILY Qty: 90 RF: 3 warfarin 2 mg tablet 2 mg PO DAILY Qty: 135 RF: 3 metoprolol succinate 100 mg tablet extended release 24 hr 150 mg PO DAILY Qty: 135 RF: 3 lisinopril 5 mg tablet 5 mg PO DAILY Qty: 90 RF: 3 clopidogrel 75 mg tablet 75 mg PO DAILY Qty: 90 RF: 3 Referrals: Shelli Rizo DO [Primary Care Provider] - <Franco Read MD - Last Filed: 04/19/19 00:38> Cosign ED Attending Cosrubyature Attestation: I was present in the ER at the time of the patient's care. I evaluated the patient in conjunction with the treatment rendered by TYLOR Moctezuma. I agree with the assessment and treatment plan.
[2019-04-18 20:20] VITALS: BP 148/86; PULSE 71; RESP 20; TEMP 36.9; O2SAT 97
[2019-04-18] MEDS: DOXYCYCLINE HYCLATE 100 MG TABLET PO (20:22)
[2019-04-18 21:10] VITALS: BP 130/59; PULSE 72; RESP 20; O2SAT 98
== END 2019-04-18 21:20 | disposition home or self-care (01) ==
PROVIDERS: Emergency Provider Nurse Practitioner; Family Provider Family Medicine; PCP Family Medicine
DX: L03.113 Cellulitis of right upper limb (principal)
CPT/HCPCS: 99282; 99283

== ENCOUNTER → 2019-05-12 08:33 | Outpatient (CLI) | payer MEDICARE, OTHER, SELFPAY ==
--- NOTE | 2019-05-12 08:39 | DI.MRI.S_ITS ---
PROCEDURE: MR CERVICAL SPINE WO CON INDICATIONS: neck pain with radiculopathy TECHNIQUE: Noncontrast sagittal T1 spin echo and T2 fast spin echo, sagittal STIR, foraminal oblique sagittal T2 fast spin echo, and axial gradient echo or T2 fast spin echo through the cervical spine. COMPARISON: None. FINDINGS: Image quality: Excellent. Alignment and Curvature: There is normal bony alignment. Bone Marrow: Marrow demonstrates normal overall signal. Spinal Cord: Visualized spinal cord has normal size and signal. No cerebellar tonsillar herniation. Paraspinous Soft Tissues: No paravertebral masses. Prevertebral soft tissues are normal in thickness. C2-C3: Mild disc desiccation. Mild diffuse disc bulge. Central annular tear. Minimal canal stenosis. No foraminal stenosis. C3-C4: Mild disc desiccation. Mild diffuse disc bulge. Mild canal stenosis. No foraminal stenosis. C4-C5: Mild disc height loss and desiccation. Mild diffuse disc bulge. Mild bilateral facet and uncovertebral hypertrophy. Mild canal stenosis. Mild bilateral foraminal stenosis. C5-C6: Mild disc height loss and desiccation. Mild diffuse disc bulge. Moderate facet and uncovertebral hypertrophy bilaterally. Mild canal stenosis. Moderate bilateral foraminal stenosis. C6-C7: Mild disc height loss and desiccation. Mild diffuse disc bulge. Mild facet and uncovertebral hypertrophy bilaterally. Mild canal stenosis. Moderate left and mild right foraminal stenosis. C7-T1: Mild disc desiccation. Mild diffuse disc bulge. Mild facet and uncovertebral hypertrophy bilaterally. Mild canal stenosis. Mild left foraminal stenosis. No right foraminal stenosis. IMPRESSION: 1. Multilevel degenerative disc and facet disease, as well as uncovertebral hypertrophy. 2. Mild multilevel canal stenoses. 3. Multilevel foraminal stenoses, worst at C5-C6 and C6-C7 where there are moderate foraminal stenoses as described above. Dictated by: Sierra Reagan M.D. on 05/14/2019 at 8:18 Approved by: Seirra Reagan M.D. on 05/14/2019 at 9:06
== END ==
PROVIDERS: Family Provider Family Medicine; PCP Family Medicine; Visit Provider Nurse Practitioner
DX: M48.02 Spinal stenosis, cervical region (principal); M54.10 Radiculopathy, site unspecified
CPT/HCPCS: 72141

== ENCOUNTER 2019-07-11 08:15 | Outpatient (RCR) | payer MEDICARE, OTHER, SELFPAY ==
--- NOTE | 2019-06-19 11:11 | PT.OIE ---
Current Diagnoses Pain in right wrist (06/19/19) Cervicalgia (06/19/19) Pain in right arm (06/19/19) Abnormal posture (06/19/19) Weakness (06/19/19) Past Medical History (Last Reviewed 04/24/19 @ 14:23 by Shelli Rizo DO) Atrial fibrillation (Chronic ~11/2013) Chicken pox (Resolved ~1949) Coronary artery disease involving [place] coronary artery of [place] heart without angina pectoris (11/23/17) Essential hypertension (11/23/17) History of malignant melanoma (11/23/17) Hyperlipidemia (11/23/17) Hypertension (Chronic ~1979) Kidney stones (Chronic ~2013) Measles (Resolved ~1949) Melanoma (Chronic ~2008) Mumps (Resolved ~1949) Rosacea (Chronic ~1959) Shoulder pain (Chronic ~2016) Past Surgical History (Last Reviewed 04/24/19 @ 14:23 by Shelli Rizo DO) Anesthesia (Resolved) Arterial occlusion, lower extremity (Chronic) S/P CABG x 6 (Resolved) Status post arthroscopy (~11/2007) Visit Care Team Role Provider Type Shelli Rizo DO Family Provider Physician Primary Care Provider Specialty: [facility] Address: [address] [place] [address], [facility] Email: [email or web address] TYLOR Norris Attending Provider Advanced Visualizer Specialty: [facility] Address: [address] [place] [address], [facility] Email: [email or web address] Physical Therapy Initial Evaluation PT-OP-A Visit Information Start: 06/19/19 08:10 Freq: Status: Active Protocol: Document 06/19/19 11:11 LIA (Rec: 06/19/19 11:16 SAK [id number]) Out-Patient Physical Therapy Visit Information Visit Information Visit Type Initial Evaluation Visit Start Time 11:11 Visit Stop Time 12:01 Total Visit Minutes 50 Visit Number 1 Evaluation Information Evaluation Date 06/19/19 Precautions Precautions PMH: CABG PT-OP-B Current Condition Start: 06/19/19 08:10 Freq: Status: Active Protocol: Document 06/19/19 11:11 [facility] (Rec: 06/20/19 09:17 [facility] [id number]) Current Condition History of Current Condition Onset Date Years Current Complaints right UE pain History of Current Condition Patient reports worsening right UE pain which is intermittant; minimal in AM but increases as day progresses to severe at times toward end of day especially with increase in activity. Pain has distribution which patient reports seems to start in his lower arm/wrist (volar surface), and extend into his first 2 digits and up his arm into right side of neck when most severe. Patient reports he uses ice and Ibuprofen at night to cut the pain, but is only mildly helpful and when pain at worst unable to use right UE. 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 Prior Treatments and Tests MRI of cervical spine shows: 1. Multilevel degenerative disc and facet disease, as well as uncovertebral hypertrophy. 2. Mild multilevel canal stenoses. 3. Multilevel foraminal stenoses, worst at C5-C6 and C6-C7 where there are moderate foraminal stenoses as described above. Future Testing and Treatments Planned None at this time Treatment Goals Patient/Caregiver Goals Decrease pain and dysfunction right UE Prior Functional Status Baseline Function- ADL's Independent Baseline Function- Mobility Independent Baseline Function- Work/School no pain or dysfunction Current Functional Impairments (Reported) Functional Limitations- ADL's pain as day progresses Functional Limitations- Work/School pain as day progresses PT-OP-C Subjective Start: 06/19/19 08:10 Freq: Status: Active Protocol: Document 06/19/19 11:11 [facility] (Rec: 06/20/19 09:17 [facility] [id number]) Patient Questionnaires Quick Dash- Upper Extremity Quick Dash UE Score 14% OP-PT Pain Assessment Pain Assessment Grid Paper Pain Assessment Grid Completed Yes Location right UE Pain Location Details right cervical spine, UE and hand Intensity 8 Scale Used Numeric (1 - 10) Description Burning,Shooting Frequency Frequent Pain Aggravating Factors Activity Pain Alleviating Factors Cold,Medication Home Pain Medication Use Pain Medications Used Yes Home Pain Medication Frequency every evening Patient Goal No medication Comments Pain Comments No pain during eval due to am PT-OP-H Neuro Start: 06/19/19 08:10 Freq: Status: Active Protocol: Document 06/19/19 11:11 [facility] (Rec: 06/20/19 09:17 [facility] [id number]) Sensation Evaluation Gross Sensation Gross Sensation WNL PT-OP-J Posture/Palpation/Skin Start: 06/19/19 08:10 Freq: Status: Active Protocol: Document 06/19/19 11:11 [facility] (Rec: 06/20/19 09:17 [facility] [id number]) Posture Evaluation Position Sitting Head/C-Spine Posture Forward Head T-Spine Posture Increased Kyphosis Shoulder Posture (L) Rounded,(R) Rounded,(L) Forward,(R) Forward Scapula Posture (L) Protracted,(R) Protracted Comments Posture Comments Dowagers hump with tissue thickening upper thoracic spine with hinging at C6-C7 Palpation Assessment Location right UE Palpation Details no tenderness elicited. Palpable tightness right upper trap cervical spine Palpation Findings Soft Tissue Tightness Palpation Details right greater than left PT-OP-L Special Tests Start: 06/19/19 08:10 Freq: Status: Active Protocol: Document 06/19/19 11:11 [facility] (Rec: 06/20/19 09:17 [facility] [id number]) Special Tests Cervical Spine Special Tests Slump Test Results negative simone Passive Neck Flexion Test Results negative simone Foraminal Compression Test Results positive right Neural Special Tests- Upper Body Ulnar Nerve Tension Test Results positive right Median Nerve Tension Test Results positive right PT-OP-M Strength Start: 06/19/19 08:10 Freq: Status: Active Protocol: Document 06/19/19 11:11 [facility] (Rec: 06/20/19 09:17 [facility] [id number]) Shoulder Strength Shoulder Manual Muscle Testing Right Flexion 5 Normal Extension 5 Normal Abduction (C5) 5 Normal External Rotation 4 Good Internal Rotation 4+ Good+ Left Flexion 5 Normal Extension 5 Normal Abduction (C5) 5 Normal Adduction 5 Normal External Rotation 5 Normal Internal Rotation 5 Normal Elbow/Forearm Strength Elbow and Forearm Manual Muscle Testing Right Flexion (C6) 4+ Good+ Extension (C7) 4+ Good+ Left Flexion (C6) 5 Normal Extension (C7) 5 Normal Wrist Strength Wrist Manual Muscle Testing Right Flexion (C7) 4+ Good+ Extension (C6) 4+ Good+ Left Flexion (C7) 5 Normal Extension (C6) 5 Normal Hand Salon Stylist/Pinch Strength Hand Dominance Hand Dominance Right Hand Strength Right Salon Stylist (lbs) 63 Left Salon Stylist (lbs) 82 PT-OP-Q Treatments Start: 06/19/19 08:10 Freq: Status: Active Protocol: Document 06/19/19 11:11 [facility] (Rec: 06/20/19 09:17 [facility] [id number]) Self-Care/Home Management Treatment Education Patient Education Home Exercise Program,Posture Other Education Patient to self-evaluate usual activities with attention to postural alignment and body mechanics. PT-OP-R Modalities Start: 06/19/19 08:10 Freq: Status: Active Protocol: Document 06/19/19 11:11 [facility] (Rec: 06/20/19 09:17 [facility] [id number]) Hot Pack/Cold Pack Treatment cervical spine and right UE Patient Position Hooklying Treatment Duration (minutes) 15 Patient Tolerance Good Comments To improve softg tissue mobility PT-OP-T Assessment and Plan Start: 06/19/19 08:10 Freq: Status: Active Protocol: Document 06/19/19 11:11 [facility] (Rec: 06/20/19 09:17 [facility] [id number]) Physical Therapy Assessment Rehab Potential Rehabilitation Potential Good Evaluation Complexity Number of Personal Factors/Comorbidities 1-2 Number of Body Systems Impaired 3 Impairments Impairments Pain,Posture,Strength Goals Three Impairment weakness right shoulder ER 4-/ 5 and oracle database developer strength 63# (left 82) Short Term Goal (STG) Improve right shoulder ER strength by 1/2 grade and oracle database developer strength right by 10# STG Duration 08/03/19 Cylinder Steamer Goal (LTG) Improve right shoulder ER strength to 5/5 and oracle database developer strength to equal or greater than left LTG Duration 09/19/18 Two Impairment postural dysfunction with forward head, rounded shoulders Short Term Goal (STG) Instruct in neutral postural alignment with HEP and correct body mechanics to decrease nerve impingement STG Duration 08/03/19 Fdc Goal (LTG) Patient to demonstrate improved postural alignment and body mechanics with all usual activities and be independent and compliant with postural correction exercises One Impairment pain and dysfuction right UE Short Term Goal (STG) Decrease pain 50% and improve his ability to do his usual activities STG Duration 08/03/19 Cylinder Steamer Goal (LTG) Decrease pain by at least 75% to allow him to do all usual activities. LTG Duration 09/19/18 Assessment Summary Assessment Patient presents with function -limiting pain right UE and cervical spine. Impairments include postural dysfunction, soft tissue tightness, weakness in shoulder ER and oracle database developer on right. He has mildly positive nerve tension in median and ulnar nerves as well as positive cervical compression test. Feel his history of wrestling and Judo with multiple injuries likely contributing to nerve entrapment. Feel he would benefit from physical therapy to decrease his pain and allow him to return to his usual activities with minimal to no pain. Physical Therapy Plan Frequency and Duration Frequency of Treatment 2x/Week Duration of Treatment 12 wks Plan of Care Start Date 06/19/19 Plan of Care End Date 09/19/18 Therapeutic Interventions Therapeutic Interventions Home Exercise Program,Manual Therapy,Neuromuscular Re- education,Patient/Caregiver Education,Self-Care/Home Management,Soft Tissue Mobilization,Taping, Therapeutic Activities, Therapeutic Exercises Modalities Cold Pack/Ice Massage,Electric Stimulation,Hot Packs, Iontophoresis,Traction- Mechanical,Ultrasound Next Visit Focus/Plan Next Note Type Treatment Note Next Visit Plan Review HEP, discuss patient's self-evaluation of posture and body mechanics after today's instruction, progress ther ex adding postural isometric, reach and roll, row with theraband, soft tissue mobilization of c/s, upper thoracic, and upper trap.
--- NOTE | 2019-06-19 11:11 | PT.OPPOC ---
Current Diagnoses Pain in right wrist (06/19/19) Cervicalgia (06/19/19) Pain in right arm (06/19/19) Abnormal posture (06/19/19) Weakness (06/19/19) Visit Care Team Role Provider Type Shelli Rizo DO Family Provider Physician Primary Care Provider Specialty: [facility] Practice Address: [address] [place] [address], [place], [address] Email: [email or web address] TYLOR Norris Attending Provider Advanced Clearing Hand Specialty: [facility] Address: [address] [place] [address], [address] Email: [email or web address] Plan Of Care PT-OP-T Assessment and Plan Start: 06/19/19 08:10 Freq: Status: Active Protocol: Document 06/19/19 11:11 SAK (Rec: 06/20/19 09:17 [facility] [id number]) Physical Therapy Assessment Rehab Potential Rehabilitation Potential Good Evaluation Complexity Number of Personal Factors/Comorbidities 1-2 Number of Body Systems Impaired 3 Impairments Impairments Pain,Posture,Strength Goals Three Impairment weakness right shoulder ER 4-/ 5 and power grader operator strength 63# (left 82) Short Term Goal (STG) Improve right shoulder ER strength by 1/2 grade and power grader operator strength right by 10# STG Duration 08/03/19 Correction Goal (LTG) Improve right shoulder ER strength to 5/5 and power grader operator strength to equal or greater than left LTG Duration 09/19/18 Two Impairment postural dysfunction with forward head, rounded shoulders Short Term Goal (STG) Instruct in neutral postural alignment with HEP and correct body mechanics to decrease nerve impingement STG Duration 08/03/19 Correction Goal (LTG) Patient to demonstrate improved postural alignment and body mechanics with all usual activities and be independent and compliant with postural correction exercises One Impairment pain and dysfuction right UE Short Term Goal (STG) Decrease pain 50% and improve his ability to do his usual activities STG Duration 08/03/19 Correction Goal (LTG) Decrease pain by at least 75% to allow him to do all usual activities. LTG Duration 09/19/18 Assessment Summary Assessment Patient presents with function -limiting pain right UE and cervical spine. Impairments include postural dysfunction, soft tissue tightness, weakness in shoulder ER and power grader operator on right. He has mildly positive nerve tension in median and ulnar nerves as well as positive cervical compression test. Feel his history of wrestling and Judo with multiple injuries likely contributing to nerve entrapment. Feel he would benefit from physical therapy to decrease his pain and allow him to return to his usual activities with minimal to no pain. Physical Therapy Plan Frequency and Duration Frequency of Treatment 2x/Week Duration of Treatment 12 wks Plan of Care Start Date 06/19/19 Plan of Care End Date 09/19/18 Therapeutic Interventions Therapeutic Interventions Home Exercise Program,Manual Therapy,Neuromuscular Re- education,Patient/Caregiver Education,Self-Care/Home Management,Soft Tissue Mobilization,Taping, Therapeutic Activities, Therapeutic Exercises Modalities Cold Pack/Ice Massage,Electric Stimulation,Hot Packs, Iontophoresis,Traction- Mechanical,Ultrasound Next Visit Focus/Plan Next Note Type Treatment Note Next Visit Plan Review HEP, discuss patient's self-evaluation of posture and body mechanics after today's instruction, progress ther ex adding postural isometric, reach and roll, row with theraband, soft tissue mobilization of c/s, upper thoracic, and upper trap. Plan of Care Dates Plan of Care Start Date 06/19/19 Plan of Care End Date 09/19/18
--- NOTE | 2019-06-20 10:20 | PT.OIE ---
Current Diagnoses Pain in right wrist (06/19/19) Cervicalgia (06/19/19) Pain in right arm (06/19/19) Abnormal posture (06/19/19) Weakness (06/19/19) Past Medical History (Last Reviewed 04/24/19 @ 14:23 by Shelli Rizo DO) Atrial fibrillation (Chronic ~11/2013) Chicken pox (Resolved ~1949) Coronary artery disease involving [place] coronary artery of [place] heart without angina pectoris (11/23/17) Essential hypertension (11/23/17) History of malignant melanoma (11/23/17) Hyperlipidemia (11/23/17) Hypertension (Chronic ~1979) Kidney stones (Chronic ~2013) Measles (Resolved ~1949) Melanoma (Chronic ~2008) Mumps (Resolved ~1949) Rosacea (Chronic ~1959) Shoulder pain (Chronic ~2016) Past Surgical History (Last Reviewed 04/24/19 @ 14:23 by Shelli Rizo DO) Anesthesia (Resolved) Arterial occlusion, lower extremity (Chronic) S/P CABG x 6 (Resolved) Status post arthroscopy (~11/2007) Visit Care Team Role Provider Type Shelli Rizo DO Family Provider Physician Primary Care Provider Specialty: [facility] Address: [address] [place] [address], [facility] Email: [email or web address] TYLOR Norris Attending Provider Advanced Lamination Machine Operator Specialty: [facility] Address: [address] [place] [address], [facility] Email: [email or web address] Physical Therapy Initial Evaluation PT-OP-A Visit Information Start: 06/19/19 08:10 Freq: Status: Active Protocol: Document 06/19/19 11:11 LIA (Rec: 06/19/19 11:16 SAK [id number]) Out-Patient Physical Therapy Visit Information Visit Information Visit Type Initial Evaluation Visit Start Time 11:11 Visit Stop Time 12:01 Total Visit Minutes 50 Visit Number 1 Evaluation Information Evaluation Date 06/19/19 Precautions Precautions PMH: CABG PT-OP-B Current Condition Start: 06/19/19 08:10 Freq: Status: Active Protocol: Document 06/19/19 11:11 [facility] (Rec: 06/20/19 09:17 [facility] [id number]) Current Condition History of Current Condition Onset Date Years Current Complaints right UE pain History of Current Condition Patient reports worsening right UE pain which is intermittant; minimal in AM but increases as day progresses to severe at times toward end of day especially with increase in activity. Pain has distribution which patient reports seems to start in his lower arm/wrist (volar surface), and extend into his first 2 digits and up his arm into right side of neck when most severe. Patient reports he uses ice and Ibuprofen at night to cut the pain, but is only mildly helpful and when pain at worst unable to use right UE. 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 Prior Treatments and Tests MRI of cervical spine shows: 1. Multilevel degenerative disc and facet disease, as well as uncovertebral hypertrophy. 2. Mild multilevel canal stenoses. 3. Multilevel foraminal stenoses, worst at C5-C6 and C6-C7 where there are moderate foraminal stenoses as described above. Future Testing and Treatments Planned None at this time Treatment Goals Patient/Caregiver Goals Decrease pain and dysfunction right UE Prior Functional Status Baseline Function- ADL's Independent Baseline Function- Mobility Independent Baseline Function- Work/School no pain or dysfunction Current Functional Impairments (Reported) Functional Limitations- ADL's pain as day progresses Functional Limitations- Work/School pain as day progresses PT-OP-C Subjective Start: 06/19/19 08:10 Freq: Status: Active Protocol: Document 06/19/19 11:11 [facility] (Rec: 06/20/19 09:17 [facility] [id number]) Patient Questionnaires Quick Dash- Upper Extremity Quick Dash UE Score 14% OP-PT Pain Assessment Pain Assessment Grid Paper Pain Assessment Grid Completed Yes Location right UE Pain Location Details right cervical spine, UE and hand Intensity 8 Scale Used Numeric (1 - 10) Description Burning,Shooting Frequency Frequent Pain Aggravating Factors Activity Pain Alleviating Factors Cold,Medication Home Pain Medication Use Pain Medications Used Yes Home Pain Medication Frequency every evening Patient Goal No medication Comments Pain Comments No pain during eval due to am PT-OP-H Neuro Start: 06/19/19 08:10 Freq: Status: Active Protocol: Document 06/19/19 11:11 [facility] (Rec: 06/20/19 09:17 [facility] [id number]) Sensation Evaluation Gross Sensation Gross Sensation WNL PT-OP-J Posture/Palpation/Skin Start: 06/19/19 08:10 Freq: Status: Active Protocol: Document 06/19/19 11:11 [facility] (Rec: 06/20/19 09:17 [facility] [id number]) Posture Evaluation Position Sitting Head/C-Spine Posture Forward Head T-Spine Posture Increased Kyphosis Shoulder Posture (L) Rounded,(R) Rounded,(L) Forward,(R) Forward Scapula Posture (L) Protracted,(R) Protracted Comments Posture Comments Dowagers hump with tissue thickening upper thoracic spine with hinging at C6-C7 Palpation Assessment Location right UE Palpation Details no tenderness elicited. Palpable tightness right upper trap cervical spine Palpation Findings Soft Tissue Tightness Palpation Details right greater than left PT-OP-L Special Tests Start: 06/19/19 08:10 Freq: Status: Active Protocol: Document 06/19/19 11:11 [facility] (Rec: 06/20/19 09:17 [facility] [id number]) Special Tests Cervical Spine Special Tests Slump Test Results negative simone Passive Neck Flexion Test Results negative simone Foraminal Compression Test Results positive right Neural Special Tests- Upper Body Ulnar Nerve Tension Test Results positive right Median Nerve Tension Test Results positive right PT-OP-M Strength Start: 06/19/19 08:10 Freq: Status: Active Protocol: Document 06/19/19 11:11 [facility] (Rec: 06/20/19 09:17 [facility] [id number]) Shoulder Strength Shoulder Manual Muscle Testing Right Flexion 5 Normal Extension 5 Normal Abduction (C5) 5 Normal External Rotation 4 Good Internal Rotation 4+ Good+ Left Flexion 5 Normal Extension 5 Normal Abduction (C5) 5 Normal Adduction 5 Normal External Rotation 5 Normal Internal Rotation 5 Normal Elbow/Forearm Strength Elbow and Forearm Manual Muscle Testing Right Flexion (C6) 4+ Good+ Extension (C7) 4+ Good+ Left Flexion (C6) 5 Normal Extension (C7) 5 Normal Wrist Strength Wrist Manual Muscle Testing Right Flexion (C7) 4+ Good+ Extension (C6) 4+ Good+ Left Flexion (C7) 5 Normal Extension (C6) 5 Normal Hand Infant Nanny/Pinch Strength Hand Dominance Hand Dominance Right Hand Strength Right Infant Nanny (lbs) 63 Left Infant Nanny (lbs) 82 PT-OP-Q Treatments Start: 06/19/19 08:10 Freq: Status: Active Protocol: Document 06/19/19 11:11 [facility] (Rec: 06/20/19 09:17 [facility] [id number]) Self-Care/Home Management Treatment Education Patient Education Home Exercise Program,Posture Other Education Patient to self-evaluate usual activities with attention to postural alignment and body mechanics. PT-OP-R Modalities Start: 06/19/19 08:10 Freq: Status: Active Protocol: Document 06/19/19 11:11 [facility] (Rec: 06/20/19 09:17 [facility] [id number]) Hot Pack/Cold Pack Treatment cervical spine and right UE Patient Position Hooklying Treatment Duration (minutes) 15 Patient Tolerance Good Comments To improve softg tissue mobility PT-OP-T Assessment and Plan Start: 06/19/19 08:10 Freq: Status: Active Protocol: Document 06/19/19 11:11 [facility] (Rec: 06/20/19 09:17 [facility] [id number]) Physical Therapy Assessment Rehab Potential Rehabilitation Potential Good Evaluation Complexity Number of Personal Factors/Comorbidities 1-2 Number of Body Systems Impaired 3 Impairments Impairments Pain,Posture,Strength Goals Three Impairment weakness right shoulder ER 4-/ 5 and intelligence director strength 63# (left 82) Short Term Goal (STG) Improve right shoulder ER strength by 1/2 grade and intelligence director strength right by 10# STG Duration 08/03/19 Automotive Teacher Goal (LTG) Improve right shoulder ER strength to 5/5 and intelligence director strength to equal or greater than left LTG Duration 09/19/18 Two Impairment postural dysfunction with forward head, rounded shoulders Short Term Goal (STG) Instruct in neutral postural alignment with HEP and correct body mechanics to decrease nerve impingement STG Duration 08/03/19 [facility] Goal (LTG) Patient to demonstrate improved postural alignment and body mechanics with all usual activities and be independent and compliant with postural correction exercises One Impairment pain and dysfuction right UE Short Term Goal (STG) Decrease pain 50% and improve his ability to do his usual activities STG Duration 08/03/19 Automotive Teacher Goal (LTG) Decrease pain by at least 75% to allow him to do all usual activities. LTG Duration 09/19/18 Assessment Summary Assessment Patient presents with function -limiting pain right UE and cervical spine. Impairments include postural dysfunction, soft tissue tightness, weakness in shoulder ER and intelligence director on right. He has mildly positive nerve tension in median and ulnar nerves as well as positive cervical compression test. Feel his history of wrestling and Judo with multiple injuries likely contributing to nerve entrapment. Feel he would benefit from physical therapy to decrease his pain and allow him to return to his usual activities with minimal to no pain. Physical Therapy Plan Frequency and Duration Frequency of Treatment 2x/Week Duration of Treatment 12 wks Plan of Care Start Date 06/19/19 Plan of Care End Date 09/19/18 Therapeutic Interventions Therapeutic Interventions Home Exercise Program,Manual Therapy,Neuromuscular Re- education,Patient/Caregiver Education,Self-Care/Home Management,Soft Tissue Mobilization,Taping, Therapeutic Activities, Therapeutic Exercises Modalities Cold Pack/Ice Massage,Electric Stimulation,Hot Packs, Iontophoresis,Traction- Mechanical,Ultrasound Next Visit Focus/Plan Next Note Type Treatment Note Next Visit Plan Review HEP, discuss patient's self-evaluation of posture and body mechanics after today's instruction, progress ther ex adding postural isometric, reach and roll, row with theraband, soft tissue mobilization of c/s, upper thoracic, and upper trap.
--- NOTE | 2019-06-20 10:20 | PT.OPPOC ---
Current Diagnoses Pain in right wrist (06/19/19) Cervicalgia (06/19/19) Pain in right arm (06/19/19) Abnormal posture (06/19/19) Weakness (06/19/19) Visit Care Team Role Provider Type Shelli Rizo DO Family Provider Physician Primary Care Provider Specialty: [facility] Practice Address: [address] [place] [address], [place], [address] Email: [email or web address] TYLOR Norris Attending Provider Advanced Tobacco Wetter Specialty: [facility] Address: [address] [place] [address], [address] Email: [email or web address] Plan Of Care PT-OP-T Assessment and Plan Start: 06/19/19 08:10 Freq: Status: Active Protocol: Document 06/19/19 11:11 [facility] (Rec: 06/20/19 09:17 [facility] [id number]) Physical Therapy Assessment Rehab Potential Rehabilitation Potential Good Evaluation Complexity Number of Personal Factors/Comorbidities 1-2 Number of Body Systems Impaired 3 Impairments Impairments Pain,Posture,Strength Goals Three Impairment weakness right shoulder ER 4-/ 5 and tapeman strength 63# (left 82) Short Term Goal (STG) Improve right shoulder ER strength by 1/2 grade and tapeman strength right by 10# STG Duration 08/03/19 Halfway Goal (LTG) Improve right shoulder ER strength to 5/5 and tapeman strength to equal or greater than left LTG Duration 09/19/18 Two Impairment postural dysfunction with forward head, rounded shoulders Short Term Goal (STG) Instruct in neutral postural alignment with HEP and correct body mechanics to decrease nerve impingement STG Duration 08/03/19 Halfway Goal (LTG) Patient to demonstrate improved postural alignment and body mechanics with all usual activities and be independent and compliant with postural correction exercises One Impairment pain and dysfuction right UE Short Term Goal (STG) Decrease pain 50% and improve his ability to do his usual activities STG Duration 08/03/19 Halfway Goal (LTG) Decrease pain by at least 75% to allow him to do all usual activities. LTG Duration 09/19/18 Assessment Summary Assessment Patient presents with function -limiting pain right UE and cervical spine. Impairments include postural dysfunction, soft tissue tightness, weakness in shoulder ER and tapeman on right. He has mildly positive nerve tension in median and ulnar nerves as well as positive cervical compression test. Feel his history of wrestling and Judo with multiple injuries likely contributing to nerve entrapment. Feel he would benefit from physical therapy to decrease his pain and allow him to return to his usual activities with minimal to no pain. Physical Therapy Plan Frequency and Duration Frequency of Treatment 2x/Week Duration of Treatment 12 wks Plan of Care Start Date 06/19/19 Plan of Care End Date 09/19/18 Therapeutic Interventions Therapeutic Interventions Home Exercise Program,Manual Therapy,Neuromuscular Re- education,Patient/Caregiver Education,Self-Care/Home Management,Soft Tissue Mobilization,Taping, Therapeutic Activities, Therapeutic Exercises Modalities Cold Pack/Ice Massage,Electric Stimulation,Hot Packs, Iontophoresis,Traction- Mechanical,Ultrasound Next Visit Focus/Plan Next Note Type Treatment Note Next Visit Plan Review HEP, discuss patient's self-evaluation of posture and body mechanics after today's instruction, progress ther ex adding postural isometric, reach and roll, row with theraband, soft tissue mobilization of c/s, upper thoracic, and upper trap. Plan of Care Dates Plan of Care Start Date 06/19/19 Plan of Care End Date 09/19/18
--- NOTE | 2019-06-27 15:47 | PT.OTN ---
Addendum entered and electronically signed by Sidra Robbins PTA 07/03/19 09:57: THer ex performed : Level 2-3 TB ER/IR/lat pull down 3x10 each, DNF at wall 5 sec hold x5, scap retraction/depression 5 sec hold x10, finger flexion and extension x10 reps each with rubber band with cues for slow pacing and small range to decrease popping/grinding with reports of feels much better. Original Note: Current Diagnoses Pain in right wrist (06/27/19) Cervicalgia (06/27/19) Pain in right arm (06/27/19) Abnormal posture (06/27/19) Weakness (06/27/19) Physical Therapy Treatment Note PT-OP-A Visit Information Start: 06/19/19 08:10 Freq: Status: Active Protocol: Document 06/27/19 13:00 SP (Rec: 06/27/19 15:46 SP [email or web address]) Out-Patient Physical Therapy Visit Information Visit Information Visit Type Treatment Note Visit Start Time 13:00 Visit Stop Time 13:45 Total Visit Minutes 45 Visit Number 2 Number of FIRST ASSISTANT Visits 1 PT-OP-B Current Condition Start: 06/19/19 08:10 Freq: Status: Active Protocol: Document 06/19/19 11:11 SAK (Rec: 06/20/19 09:17 SAK [id number]) Current Condition History of Current Condition Onset Date Years Current Complaints right UE pain History of Current Condition Patient reports worsening right UE pain which is intermittant; minimal in AM but increases as day progresses to severe at times toward end of day especially with increase in activity. Pain has distribution which patient reports seems to start in his lower arm/wrist (volar surface), and extend into his first 2 digits and up his arm into right side of neck when most severe. Patient reports he uses ice and Ibuprofen at night to cut the pain, but is only mildly helpful and when pain at worst unable to use right UE. 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 Prior Treatments and Tests MRI of cervical spine shows: 1. Multilevel degenerative disc and facet disease, as well as uncovertebral hypertrophy. 2. Mild multilevel canal stenoses. 3. Multilevel foraminal stenoses, worst at C5-C6 and C6-C7 where there are moderate foraminal stenoses as described above. Future Testing and Treatments Planned None at this time Treatment Goals Patient/Caregiver Goals Decrease pain and dysfunction right UE Prior Functional Status Baseline Function- ADL's Independent Baseline Function- Mobility Independent Baseline Function- Work/School no pain or dysfunction Current Functional Impairments (Reported) Functional Limitations- ADL's pain as day progresses Functional Limitations- Work/School pain as day progresses PT-OP-C Subjective Start: 06/19/19 08:10 Freq: Status: Active Protocol: Document 06/27/19 13:00 SP (Rec: 06/27/19 15:46 SP [email or web address]) OP-PT Subjective Patient Comments Patient Comments Pt reported just having achy low level pain pre PT mainly A /P R shld. No changes or concerns since last visit. Patient Reported Progress Same PT-OP-H Neuro Start: 06/19/19 08:10 Freq: Status: Active Protocol: Document 06/19/19 11:11 SAK (Rec: 06/20/19 09:17 SAK [id number]) Sensation Evaluation Gross Sensation Gross Sensation WNL PT-OP-J Posture/Palpation/Skin Start: 06/19/19 08:10 Freq: Status: Active Protocol: Document 06/19/19 11:11 SAK (Rec: 06/20/19 09:17 SAK [id number]) Posture Evaluation Position Sitting Head/C-Spine Posture Forward Head T-Spine Posture Increased Kyphosis Shoulder Posture (L) Rounded,(R) Rounded,(L) Forward,(R) Forward Scapula Posture (L) Protracted,(R) Protracted Comments Posture Comments Dowagers hump with tissue thickening upper thoracic spine with hinging at C6-C7 Palpation Assessment Location right UE Palpation Details no tenderness elicited. Palpable tightness right upper trap cervical spine Palpation Findings Soft Tissue Tightness Palpation Details right greater than left PT-OP-L Special Tests Start: 06/19/19 08:10 Freq: Status: Active Protocol: Document 06/19/19 11:11 SAK (Rec: 06/20/19 09:17 SAK [id number]) Special Tests Cervical Spine Special Tests Slump Test Results negative simone Passive Neck Flexion Test Results negative simone Foraminal Compression Test Results positive right Neural Special Tests- Upper Body Ulnar Nerve Tension Test Results positive right Median Nerve Tension Test Results positive right PT-OP-M Strength Start: 06/19/19 08:10 Freq: Status: Active Protocol: Document 06/19/19 11:11 [facility] (Rec: 06/20/19 09:17 [facility] [id number]) Shoulder Strength Shoulder Manual Muscle Testing Right Flexion 5 Normal Extension 5 Normal Abduction (C5) 5 Normal External Rotation 4 Good Internal Rotation 4+ Good+ Left Flexion 5 Normal Extension 5 Normal Abduction (C5) 5 Normal Adduction 5 Normal External Rotation 5 Normal Internal Rotation 5 Normal Elbow/Forearm Strength Elbow and Forearm Manual Muscle Testing Right Flexion (C6) 4+ Good+ Extension (C7) 4+ Good+ Left Flexion (C6) 5 Normal Extension (C7) 5 Normal Wrist Strength Wrist Manual Muscle Testing Right Flexion (C7) 4+ Good+ Extension (C6) 4+ Good+ Left Flexion (C7) 5 Normal Extension (C6) 5 Normal Hand Adult Basic Education Teacher/Pinch Strength Hand Dominance Hand Dominance Right Hand Strength Right Adult Basic Education Teacher (lbs) 63 Left Adult Basic Education Teacher (lbs) 82 PT-OP-Q Treatments Start: 06/19/19 08:10 Freq: Status: Active Protocol: Document 06/27/19 13:00 SP (Rec: 06/27/19 15:46 SP [email or web address]) Manual Therapy Treatment Manual Techniques IASTM Type IASTM crossfiber to forearm flexors superior wrist, proximal extensors Body Position Sitting Reps/Duration 7 Comments Provided manual with instruction in use of tool for decreasing tightness in forearm mm. STMs Type Crossfiber friction: deltoid, infraspinatus Body Location R shld Body Position Sidelying Reps/Duration 8 PT-OP-R Modalities Start: 06/19/19 08:10 Freq: Status: Active Protocol: Document 06/19/19 11:11 [facility] (Rec: 06/20/19 09:17 [facility] [id number]) Hot Pack/Cold Pack Treatment cervical spine and right UE Patient Position Hooklying Treatment Duration (minutes) 15 Patient Tolerance Good Comments To improve softg tissue mobility PT-OP-T Assessment and Plan Start: 06/19/19 08:10 Freq: Status: Active Protocol: Document 06/27/19 13:00 SP (Rec: 06/27/19 15:46 SP [email or web address]) Physical Therapy Assessment Assessment Summary Assessment Pt tolerated added exercise today. Noted grinding, popping initally during ER>IR but improved post cues for mid range to neutral and neutral scapular positioning with increase stabilization and decreased popping/grinding in R GH jt noted. Physical Therapy Plan Frequency and Duration Frequency of Treatment 2x/Week Duration of Treatment 12 wks Plan of Care Start Date 06/19/19 Plan of Care End Date 09/19/18 Therapeutic Interventions Therapeutic Interventions Home Exercise Program,Manual Therapy,Neuromuscular Re- education,Patient/Caregiver Education,Self-Care/Home Management,Soft Tissue Mobilization,Taping, Therapeutic Activities, Therapeutic Exercises Modalities Cold Pack/Ice Massage,Electric Stimulation,Hot Packs, Iontophoresis,Traction- Mechanical,Ultrasound Next Visit Focus/Plan Next Note Type Treatment Note Next Visit Plan Review HEP, discuss patient's self-evaluation of posture and body mechanics after today's instruction, progress ther ex adding postural isometric, reach and roll, row with theraband, soft tissue mobilization of c/s, upper thoracic, and upper trap.
--- NOTE | 2019-07-03 11:15 | PT.OTN ---
Current Diagnoses Pain in right wrist (07/03/19) Cervicalgia (07/03/19) Pain in right arm (07/03/19) Abnormal posture (07/03/19) Weakness (07/03/19) Physical Therapy Treatment Note PT-OP-A Visit Information Start: 06/19/19 08:10 Freq: Status: Active Protocol: Document 07/03/19 11:15 SP (Rec: 07/03/19 11:59 SP [email or web address]) Out-Patient Physical Therapy Visit Information Visit Information Visit Type Treatment Note Visit Start Time 10:33 Visit Stop Time 11:15 Total Visit Minutes 42 Visit Number 3 Number of FISHER WEIR Visits 2 PT-OP-B Current Condition Start: 06/19/19 08:10 Freq: Status: Active Protocol: Document 06/19/19 11:11 SAK (Rec: 06/20/19 09:17 SAK [id number]) Current Condition History of Current Condition Onset Date Years Current Complaints right UE pain History of Current Condition Patient reports worsening right UE pain which is intermittant; minimal in AM but increases as day progresses to severe at times toward end of day especially with increase in activity. Pain has distribution which patient reports seems to start in his lower arm/wrist (volar surface), and extend into his first 2 digits and up his arm into right side of neck when most severe. Patient reports he uses ice and Ibuprofen at night to cut the pain, but is only mildly helpful and when pain at worst unable to use right UE. 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 Prior Treatments and Tests MRI of cervical spine shows: 1. Multilevel degenerative disc and facet disease, as well as uncovertebral hypertrophy. 2. Mild multilevel canal stenoses. 3. Multilevel foraminal stenoses, worst at C5-C6 and C6-C7 where there are moderate foraminal stenoses as described above. Future Testing and Treatments Planned None at this time Treatment Goals Patient/Caregiver Goals Decrease pain and dysfunction right UE Prior Functional Status Baseline Function- ADL's Independent Baseline Function- Mobility Independent Baseline Function- Work/School no pain or dysfunction Current Functional Impairments (Reported) Functional Limitations- ADL's pain as day progresses Functional Limitations- Work/School pain as day progresses PT-OP-C Subjective Start: 06/19/19 08:10 Freq: Status: Active Protocol: Document 07/03/19 11:15 SP (Rec: 07/03/19 11:59 SP [email or web address]) OP-PT Subjective Patient Comments Patient Comments Pt reported no pain pre PT and has been perfroming his HEP. He had more achiness in wrist last night after washing outside windows and moving the hose around. He reported is only experiencing shld popping at end of 3 set of ex's and able to complete ER further than before, improvement. Patient Reported Progress Improving PT-OP-H Neuro Start: 06/19/19 08:10 Freq: Status: Active Protocol: Document 06/19/19 11:11 [facility] (Rec: 06/20/19 09:17 SAK [id number]) Sensation Evaluation Gross Sensation Gross Sensation WNL PT-OP-J Posture/Palpation/Skin Start: 06/19/19 08:10 Freq: Status: Active Protocol: Document 06/19/19 11:11 SAK (Rec: 06/20/19 09:17 SAK [id number]) Posture Evaluation Position Sitting Head/C-Spine Posture Forward Head T-Spine Posture Increased Kyphosis Shoulder Posture (L) Rounded,(R) Rounded,(L) Forward,(R) Forward Scapula Posture (L) Protracted,(R) Protracted Comments Posture Comments Dowagers hump with tissue thickening upper thoracic spine with hinging at C6-C7 Palpation Assessment Location right UE Palpation Details no tenderness elicited. Palpable tightness right upper trap cervical spine Palpation Findings Soft Tissue Tightness Palpation Details right greater than left PT-OP-L Special Tests Start: 06/19/19 08:10 Freq: Status: Active Protocol: Document 06/19/19 11:11 [facility] (Rec: 06/20/19 09:17 [facility] [id number]) Special Tests Cervical Spine Special Tests Slump Test Results negative simone Passive Neck Flexion Test Results negative simone Foraminal Compression Test Results positive right Neural Special Tests- Upper Body Ulnar Nerve Tension Test Results positive right Median Nerve Tension Test Results positive right PT-OP-M Strength Start: 06/19/19 08:10 Freq: Status: Active Protocol: Document 06/19/19 11:11 SAK (Rec: 06/20/19 09:17 SAK [id number]) Shoulder Strength Shoulder Manual Muscle Testing Right Flexion 5 Normal Extension 5 Normal Abduction (C5) 5 Normal External Rotation 4 Good Internal Rotation 4+ Good+ Left Flexion 5 Normal Extension 5 Normal Abduction (C5) 5 Normal Adduction 5 Normal External Rotation 5 Normal Internal Rotation 5 Normal Elbow/Forearm Strength Elbow and Forearm Manual Muscle Testing Right Flexion (C6) 4+ Good+ Extension (C7) 4+ Good+ Left Flexion (C6) 5 Normal Extension (C7) 5 Normal Wrist Strength Wrist Manual Muscle Testing Right Flexion (C7) 4+ Good+ Extension (C6) 4+ Good+ Left Flexion (C7) 5 Normal Extension (C6) 5 Normal Hand Assistant Professor Of Economics/Pinch Strength Hand Dominance Hand Dominance Right Hand Strength Right Assistant Professor Of Economics (lbs) 63 Left Assistant Professor Of Economics (lbs) 82 PT-OP-Q Treatments Start: 06/19/19 08:10 Freq: Status: Active Protocol: Document 07/03/19 11:15 SP (Rec: 07/03/19 11:59 SP [email or web address]) Cardio Equipment Upper Body Ergometer (UBE) Duration (Minutes) 6 RPM 69 Seat Position 21 Other 3 min forward/backward Therapeutic Exercises Sitting Exercises wrist strengthening Sitting Exercise Name wrist flex/ext/RD/UD/pronation /supination Side right Equipment Used level 2 TB Reps/Minutes 3x10 each direction Comments slow controlled pacing, keep arm rested on table and just move hand Standing Exercises Cervical extension Standing Exercise Name DNF at wall Equipment Used Level 2 TB Reps/Minutes 3x10 5 sec hold Comments elbow bent on wall at shld height, retraction to neutral [place] 5 RTC Standing Exercise Name IR/ER/lat pull down PT-OP-R Modalities Start: 06/19/19 08:10 Freq: Status: Active Protocol: Document 06/19/19 11:11 SAK (Rec: 06/20/19 09:17 SAK [id number]) Hot Pack/Cold Pack Treatment cervical spine and right UE Patient Position Hooklying Treatment Duration (minutes) 15 Patient Tolerance Good Comments To improve softg tissue mobility PT-OP-T Assessment and Plan Start: 06/19/19 08:10 Freq: Status: Active Protocol: Document 07/03/19 11:15 SP (Rec: 07/03/19 11:59 SP [email or web address]) Physical Therapy Assessment Assessment Summary Assessment Pt tolerated exercises well, occasional cues for scapular stabilization and upright posture during IR/ER to facilitate proper form. No popping/ grinding in R shld noted today during tx. No pain reported end of tx, I feel good. Physical Therapy Plan Frequency and Duration Frequency of Treatment 2x/Week Duration of Treatment 12 wks Plan of Care Start Date 06/19/19 Plan of Care End Date 09/19/18 Therapeutic Interventions Therapeutic Interventions Home Exercise Program,Manual Therapy,Neuromuscular Re- education,Patient/Caregiver Education,Self-Care/Home Management,Soft Tissue Mobilization,Taping, Therapeutic Activities, Therapeutic Exercises Modalities Cold Pack/Ice Massage,Electric Stimulation,Hot Packs, Iontophoresis,Traction- Mechanical,Ultrasound Next Visit Focus/Plan Next Note Type Treatment Note Next Visit Plan Review HEP, discuss patient's self-evaluation of posture and body mechanics after today's instruction, progress ther ex adding postural isometric, reach and roll, row with theraband, soft tissue mobilization of c/s, upper thoracic, and upper trap.
--- NOTE | 2019-07-05 11:49 | PT.OTN ---
Current Diagnoses Pain in right wrist (07/05/19) Cervicalgia (07/05/19) Pain in right arm (07/05/19) Abnormal posture (07/05/19) Weakness (07/05/19) Physical Therapy Treatment Note PT-OP-A Visit Information Start: 06/19/19 08:10 Freq: Status: Active Protocol: Document 07/05/19 11:16 [facility] (Rec: 07/05/19 11:48 [facility]W [id number]) Out-Patient Physical Therapy Visit Information Visit Information Visit Type Treatment Note Visit Start Time 10:32 Visit Stop Time 11:15 Total Visit Minutes 43 Visit Number 4 Number of MANAGER ENVIRONMENTAL HEALTH Visits 0 PT-OP-B Current Condition Start: 06/19/19 08:10 Freq: Status: Active Protocol: Document 06/19/19 11:11 SAK (Rec: 06/20/19 09:17 SAK [id number]) Current Condition History of Current Condition Onset Date Years Current Complaints right UE pain History of Current Condition Patient reports worsening right UE pain which is intermittant; minimal in AM but increases as day progresses to severe at times toward end of day especially with increase in activity. Pain has distribution which patient reports seems to start in his lower arm/wrist (volar surface), and extend into his first 2 digits and up his arm into right side of neck when most severe. Patient reports he uses ice and Ibuprofen at night to cut the pain, but is only mildly helpful and when pain at worst unable to use right UE. 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 Prior Treatments and Tests MRI of cervical spine shows: 1. Multilevel degenerative disc and facet disease, as well as uncovertebral hypertrophy. 2. Mild multilevel canal stenoses. 3. Multilevel foraminal stenoses, worst at C5-C6 and C6-C7 where there are moderate foraminal stenoses as described above. Future Testing and Treatments Planned None at this time Treatment Goals Patient/Caregiver Goals Decrease pain and dysfunction right UE Prior Functional Status Baseline Function- ADL's Independent Baseline Function- Mobility Independent Baseline Function- Work/School no pain or dysfunction Current Functional Impairments (Reported) Functional Limitations- ADL's pain as day progresses Functional Limitations- Work/School pain as day progresses PT-OP-C Subjective Start: 06/19/19 08:10 Freq: Status: Active Protocol: Document 07/05/19 11:16 [facility] (Rec: 07/05/19 11:48 NFW [id number]) OP-PT Subjective Patient Comments Patient Comments Patient pleased with progress. Presently has no c/o pain. Has been able to increase activities around the home with no exasperation of pain. States compliance with HEP, performing daily. Notes shld popping third set ER with tband. If symptoms will take a tylenol and rest. Awakens with no pain. Patient Reported Progress Improving PT-OP-H Neuro Start: 06/19/19 08:10 Freq: Status: Active Protocol: Document 06/19/19 11:11 SAK (Rec: 06/20/19 09:17 SAK [id number]) Sensation Evaluation Gross Sensation Gross Sensation WNL PT-OP-J Posture/Palpation/Skin Start: 06/19/19 08:10 Freq: Status: Active Protocol: Document 06/19/19 11:11 SAK (Rec: 06/20/19 09:17 SAK [id number]) Posture Evaluation Position Sitting Head/C-Spine Posture Forward Head T-Spine Posture Increased Kyphosis Shoulder Posture (L) Rounded,(R) Rounded,(L) Forward,(R) Forward Scapula Posture (L) Protracted,(R) Protracted Comments Posture Comments Dowagers hump with tissue thickening upper thoracic spine with hinging at C6-C7 Palpation Assessment Location right UE Palpation Details no tenderness elicited. Palpable tightness right upper trap cervical spine Palpation Findings Soft Tissue Tightness Palpation Details right greater than left PT-OP-L Special Tests Start: 06/19/19 08:10 Freq: Status: Active Protocol: Document 06/19/19 11:11 SAK (Rec: 06/20/19 09:17 SAK [id number]) Special Tests Cervical Spine Special Tests Slump Test Results negative stephen Passive Neck Flexion Test Results negative stephen Foraminal Compression Test Results positive right Neural Special Tests- Upper Body Ulnar Nerve Tension Test Results positive right Median Nerve Tension Test Results positive right PT-OP-M Strength Start: 06/19/19 08:10 Freq: Status: Active Protocol: Document 07/05/19 11:16 [facility]W (Rec: 07/05/19 11:48 NFW [id number]) Hand Demurrage Worker/Pinch Strength Hand Strength Right Demurrage Worker (lbs) 70 Left Demurrage Worker (lbs) 85 PT-OP-Q Treatments Start: 06/19/19 08:10 Freq: Status: Active Protocol: Document 07/05/19 11:16 [facility]W (Rec: 07/05/19 11:48 NFW [id number]) Therapeutic Exercises Other Exercises Posture Exercises Other Exercise Name Axial Extension, Stephen Shlder ER , Trap Stretch Side bilateral Resistance none Equipment Used none Reps/Minutes 6 reps Comments To be performed throughout the day as needed. Therapeutic Activity Therapeutic Activity Posture Training, Body Mechanics Name Neck Positioning, Sleeping Postures, Body Mechanics Reps/Minutes 30 Comments Discusssion of the difference between nodding and flexion of the cervical spine and how to use the nodding with daily activities. Sleeping postures in supine and side lying with proper pillow support and UE placement. Discussion hinging at the hips and nodding at c- spine when performing functional activities such as using a chain saw, washing windows and moving hoses. Learning awareness of head and neck positioning. PT-OP-R Modalities Start: 06/19/19 08:10 Freq: Status: Active Protocol: Document 06/19/19 11:11 SAK (Rec: 06/20/19 09:17 SAK [id number]) Hot Pack/Cold Pack Treatment cervical spine and right UE Patient Position Hooklying Treatment Duration (minutes) 15 Patient Tolerance Good Comments To improve softg tissue mobility PT-OP-T Assessment and Plan Start: 06/19/19 08:10 Freq: Status: Active Protocol: Document 07/05/19 11:16 [facility] (Rec: 07/05/19 11:48 NFW [id number]) Physical Therapy Assessment Assessment Summary Assessment Excellent compliance with HEP. Symptoms subsiding. Currently, no c/o pain. Continues to note popping in shoulder in 3rd set of ER tband exercise but learning to control. Receptive to all educational information provided. Physical Therapy Plan Frequency and Duration Frequency of Treatment 1x/Week Duration of Treatment 12 wks Plan of Care Start Date 06/19/19 Plan of Care End Date 09/19/18 Therapeutic Interventions Therapeutic Interventions Home Exercise Program,Manual Therapy,Neuromuscular Re- education,Patient/Caregiver Education,Self-Care/Home Management,Soft Tissue Mobilization,Taping, Therapeutic Activities, Therapeutic Exercises Next Visit Focus/Plan Next Note Type Treatment Note Next Visit Plan Assess for discharge. To come prepared with any questions regarding cspine. Update and review HEP. Reiterate Body mechanics as needed.
--- NOTE | 2019-07-11 13:46 | PT.OTN ---
Current Diagnoses Pain in right wrist (07/11/19) Cervicalgia (07/11/19) Pain in right arm (07/11/19) Abnormal posture (07/11/19) Weakness (07/11/19) Physical Therapy Treatment Note PT-OP-A Visit Information Start: 06/19/19 08:10 Freq: Status: Active Protocol: Document 07/11/19 08:15 NFW (Rec: 07/11/19 13:46 NFW [id number]) Out-Patient Physical Therapy Visit Information Visit Information Visit Type Discharge Summary Visit Start Time 08:15 Visit Stop Time 09:00 Total Visit Minutes 45 Visit Number 5 PT-OP-B Current Condition Start: 06/19/19 08:10 Freq: Status: Active Protocol: Document 06/19/19 11:11 SAK (Rec: 06/20/19 09:17 SAK [id number]) Current Condition History of Current Condition Onset Date Years Current Complaints right UE pain History of Current Condition Patient reports worsening right UE pain which is intermittant; minimal in AM but increases as day progresses to severe at times toward end of day especially with increase in activity. Pain has distribution which patient reports seems to start in his lower arm/wrist (volar surface), and extend into his first 2 digits and up his arm into right side of neck when most severe. Patient reports he uses ice and Ibuprofen at night to cut the pain, but is only mildly helpful and when pain at worst unable to use right UE. 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 Prior Treatments and Tests MRI of cervical spine shows: 1. Multilevel degenerative disc and facet disease, as well as uncovertebral hypertrophy. 2. Mild multilevel canal stenoses. 3. Multilevel foraminal stenoses, worst at C5-C6 and C6-C7 where there are moderate foraminal stenoses as described above. Future Testing and Treatments Planned None at this time Treatment Goals Patient/Caregiver Goals Decrease pain and dysfunction right UE Prior Functional Status Baseline Function- ADL's Independent Baseline Function- Mobility Independent Baseline Function- Work/School no pain or dysfunction Current Functional Impairments (Reported) Functional Limitations- ADL's pain as day progresses Functional Limitations- Work/School pain as day progresses PT-OP-C Subjective Start: 06/19/19 08:10 Freq: Status: Active Protocol: Document 07/11/19 08:15 NFW (Rec: 07/11/19 13:46 NFW [id number]) OP-PT Subjective Patient Comments Patient Comments Patient pleased with progress. Will note discomfort some discomfort after a busy day working in his yard but the eases with rest. He states compliance with his HEP. He states that he is applying proper body mechanics/head positioning with his activities in the home as well as when in the yard. Patient Reported Progress Improving Patient Questionnaires Neck Disability Index NDI Score 0 Neck Disability Index Impairment 0% Impaired (Score 0) Quick Dash- Upper Extremity Quick Dash UE Score 4.54 Quick Dash UE Impairment 1 to 19% Impaired (Score 1-19) OP-PT Pain Assessment Pain Assessment Grid Paper Pain Assessment Grid Completed Yes: Reports No Pain PT-OP-H Neuro Start: 06/19/19 08:10 Freq: Status: Active Protocol: Document 07/11/19 08:15 NFW (Rec: 07/11/19 13:46 NFW [id number]) Deep Tendon Reflex & Clonus Assessment Deep Tendon Reflex Bilateral Brachioradialis Deep Tendon Reflex 2+ Normal Bilateral Tricep Deep Tendon Reflex 2+ Normal Bilateral Bicep Deep Tendon Reflex 2+ Normal PT-OP-J Posture/Palpation/Skin Start: 06/19/19 08:10 Freq: Status: Active Protocol: Document 07/11/19 08:15 NFW (Rec: 07/11/19 13:46 NFW [id number]) Posture Evaluation Position Sitting Evaluation View Lateral Head/C-Spine Posture Forward Head T-Spine Posture Increased Kyphosis Shoulder Posture Neutral Scapula Posture (L) Neutral,(R) Neutral Comments Posture Comments Patient much more aware of proper positioning of his head over his shoulders. He has learned nodding vs flexion of c-spine with functional activities. He is making excellent effort in decreased rounding of his shoulders. PT-OP-L Special Tests Start: 06/19/19 08:10 Freq: Status: Active Protocol: Document 07/11/19 08:15 NFW (Rec: 07/11/19 13:46 NFW [id number]) Special Tests Cervical Spine Special Tests Slump Test Results Negative Passive Neck Flexion Test Results Negative Foraminal Compression Test Results Negative Neural Special Tests- Upper Body Ulnar Nerve Tension Test Results Negative Median Nerve Tension Test Results Negative PT-OP-M Strength Start: 06/19/19 08:10 Freq: Status: Active Protocol: Document 07/11/19 08:15 NFW (Rec: 07/11/19 13:46 NFW [id number]) Shoulder Strength Shoulder Manual Muscle Testing Right Flexion 5 Normal Extension 5 Normal Abduction (C5) 5 Normal External Rotation 5 Normal Internal Rotation 5 Normal Left Flexion 5 Normal Extension 5 Normal Abduction (C5) 5 Normal External Rotation 5 Normal Internal Rotation 5 Normal Elbow/Forearm Strength Elbow and Forearm Manual Muscle Testing Right Flexion (C6) 5 Normal Extension (C7) 5 Normal Pronation 5 Normal Supination 5 Normal Left Flexion (C6) 5 Normal Extension (C7) 5 Normal Pronation 5 Normal Supination 5 Normal Wrist Strength Wrist Manual Muscle Testing Right Flexion (C7) 5 Normal Extension (C6) 5 Normal Left Flexion (C7) 5 Normal Extension (C6) 5 Normal Hand Electric Power Superintendent/Pinch Strength Hand Strength Right Electric Power Superintendent (lbs) 70 Comments Previously 62 lbs on 06/19/19 Left Electric Power Superintendent (lbs) 85 Comments Previously 82 lbs on 06/19/19 PT-OP-Q Treatments Start: 06/19/19 08:10 Freq: Status: Active Protocol: Document 07/11/19 08:15 NFW (Rec: 07/11/19 13:46 NFW [id number]) Therapeutic Exercises Other Exercises 1 Other Exercise Name Guidance in HEP for the upper body with his barbells Reps/Minutes 15 Comments Pt had previously wt lifting program, guided in all exercises. Therapeutic Activity Therapeutic Activity Posture Training, Body Mechanics Name Body Mechanics Reps/Minutes 30 Comments Body mechanics, head & neck positioning with activities in the yard, working on a computer, watching TV, working at a high counter. General body mechanics and positioning with simple activities such as brushing his teeth, washing dishes. PT-OP-R Modalities Start: 06/19/19 08:10 Freq: Status: Active Protocol: Document 06/19/19 11:11 SAK (Rec: 06/20/19 09:17 SAK [id number]) Hot Pack/Cold Pack Treatment cervical spine and right UE Patient Position Hooklying Treatment Duration (minutes) 15 Patient Tolerance Good Comments To improve softg tissue mobility PT-OP-T Assessment and Plan Start: 06/19/19 08:10 Freq: Status: Active Protocol: Document 07/11/19 08:15 NFW (Rec: 07/11/19 13:46 NFW [id number]) Physical Therapy Assessment Progress Towards Goals Progress Towards Goals Goals Met Progress Comments Normal strength major muscle groups right shoulder & hand. Electric Power Superintendent strength right increased by 8 lbs. Assessment Summary Assessment Excellent progress from patient. He has followed through with his HEP as well as educational material provided to reduce stress/ tension on c-spine and shoulder. He currently has no complaints of pain. He will note some discomfort in his right hand after working in the yard, symptoms relieved with rest. The patient has regained normal strength in his right shoulder, forearm and elbow. 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 Electric Power Superintendent strength left is at 85 lbs. Physical Therapy Plan Therapeutic Interventions Therapeutic Interventions Home Exercise Program,Manual Therapy,Neuromuscular Re- education,Patient/Caregiver Education,Self-Care/Home Management,Soft Tissue Mobilization,Taping, Therapeutic Activities, Therapeutic Exercises Discharge Physical Therapy Discharge Reasons Goals Met
== END 2019-07-12 13:01 ==
LOC: PHYS 08:15
PROVIDERS: Family Provider Family Medicine; PCP Family Medicine; Visit Provider Nurse Practitioner
DX: M54.2 Cervicalgia (principal); M79.601 Pain in right arm; M25.531 Pain in right wrist; R53.1 Weakness; R29.3 Abnormal posture
CPT/HCPCS: 97010; 97110; 97140; 97162; 97530; 97535

== ENCOUNTER → 2019-10-01 09:29 | Outpatient (CLI) | payer MEDICARE, OTHER, SELFPAY ==
[2019-10-01 10:55] LABS: Add Manual Diff / Slide Review NO; Basophils Absolute Auto 0 /uL (0-100); Basophils Percent Auto 0.6 % (0-2); Eosinophils Absolute Auto 100 /uL (0-450); Eosinophils Percent Auto 1.2 % (2-4); Hematocrit 47.7 % (41-53); Hemoglobin 16.2 g/dL (13.5-17.5); Lymphocytes Absolute Auto 1200 /uL (1100-4500); Lymphocytes Percent Auto 22.3 % (25-40); Mean Corpuscular Hemoglobin 32.5 PG (26-34); Mean Corpuscular Volume 95.5 fL (80-100); Monocytes Absolute Auto 500 /uL (0-900); Monocytes Percent Auto 8.8 % (3-14); Neutrophils Absolute Auto 3600 /uL (1500-7000); Neutrophils Percent Auto 67.1 % (50-75); Platelet Count 188 X10^3/uL (150-400); Red Cell Distribution Width 12.9 % (11.6-14.8); White Blood Cell Count 5.4 X10^3/uL (4.5-11.0)
[2019-10-01 11:17] LABS: Alanine Aminotransferase 35 IU/L (<50); Albumin 4.1 g/dL (3.5-5.0); Albumin Globulin Ratio 1.6 (1.0-2.8); Alkaline Phosphatase 69 U/L (38-126); Aspartate Aminotransferase 33 IU/L (17-59); Bilirubin Total 0.7 mg/dL (0.2-1.3); Blood Urea Nitrogen 20 mg/dL (9-20); Calcium 9.6 mg/dL (8.4-10.2); Carbon Dioxide 25 mmol/L (22-32); Chloride 103 mmol/L (98-107); Cholesterol 199 mg/dL (140-199); Estimated Glomerular Filt Rate > 60.0 mL/min (>60); Globulin 2.6 g/dL (1.7-4.1); Glucose 126 mg/dL (80-110); HDL Cholesterol 55 mg/dL (40-60); HEMOLYSIS < 15 (0-50); LDL Cholesterol Calculated 125 mg/dL (<100); Potassium 4.5 mmol/L (3.4-5.1); Sodium 136 mmol/L (137-145); Total Protein 6.7 g/dL (6.3-8.2); Triglycerides 96 mg/dL (35-150)
[2019-10-01 11:43] LABS: Thyroid Stimulating Hormone 4.14 uIU/mL (0.47-4.68)
[2019-10-01 13:57] LABS: Creatinine Urine Random 154.7 mg/dL
[2019-10-01 14:07] LABS: Microalbumi Creatinin Ratio Ur 3.8 ug/mg CR (<30); Microalbumin Urine Random < 0.6 mg/dL (0-1.6)
== END ==
PROVIDERS: PCP Family Medicine; Visit Provider Family Medicine
DX: E78.5 Hyperlipidemia, unspecified (principal); I10 Essential (primary) hypertension; I25.10 Atherosclerotic heart disease of native coronary artery without angina pectoris; Z85.820 Personal history of malignant melanoma of skin
CPT/HCPCS: 36415; 80053; 80061; 82043; 82570; 84443; 85025

== ENCOUNTER → 2019-10-09 08:27 | Outpatient (CLI) | payer MEDICARE, OTHER, SELFPAY ==
[2019-10-09 09:27] LABS: Hemoglobin A1C% w Est Avg Glu 5.8 % (4.0-6.0)
== END ==
PROVIDERS: PCP Family Medicine; Visit Provider Family Medicine
DX: R73.9 Hyperglycemia, unspecified (principal)
CPT/HCPCS: 36415; 83036

== ENCOUNTER → 2020-03-17 14:13 | Outpatient (CLI) | payer MEDICARE, OTHER, SELFPAY ==
[2020-03-18 06:42] LABS: COVID19 Sendout Not Detected (Not Detect)
== END ==
PROVIDERS: PCP Family Medicine; Visit Provider Physician Assistant
DX: Z01.812 Encounter for preprocedural laboratory examination (principal)
CPT/HCPCS: 87635

== ENCOUNTER → 2020-10-21 09:12 | Outpatient (CLI) | payer MEDICARE, OTHER, SELFPAY ==
[2020-10-21 09:45] LABS: Hematocrit 45.4 % (41-53); Hemoglobin 15.4 g/dL (13.5-17.5); Mean Corpuscular Hemoglobin 32.3 PG (26-34); Platelet Count 166 X10^3/uL (150-400); Red Blood Cell Count 4.78 X10^6/uL (4.5-5.9); Red Cell Distribution Width 12.6 % (11.6-14.8); White Blood Cell Count 5.2 X10^3/uL (4.5-11.0)
[2020-10-21 10:33] LABS: Alanine Aminotransferase 35 IU/L (<50); Albumin Globulin Ratio 1.5 (1.0-2.8); Alkaline Phosphatase 69 U/L (38-126); Aspartate Aminotransferase 32 IU/L (17-59); BUN Creatinine Ratio 23.1 (6-22); Bilirubin Total 0.6 mg/dL (0.2-1.3); Blood Urea Nitrogen 21 mg/dL (9-20); Calcium 9.2 mg/dL (8.4-10.2); Carbon Dioxide 28 mmol/L (22-32); Chloride 104 mmol/L (98-107); Cholesterol 164 mg/dL (140-199); Estimated Glomerular Filt Rate > 60.0 mL/min (>60); Globulin 2.6 g/dL (1.7-4.1); Glucose 113 mg/dL (80-110); HDL Cholesterol 45 mg/dL (40-60); HEMOLYSIS < 15 (0-50); LDL Cholesterol Calculated 100 mg/dL (<100); Potassium 4.3 mmol/L (3.4-5.1); Sodium 134 mmol/L (137-145); Total Protein 6.6 g/dL (6.3-8.2); Triglycerides 93 mg/dL (35-150)
== END ==
PROVIDERS: PCP Family Medicine; Referring Provider Family Medicine; Visit Provider Family Medicine
DX: I25.10 Atherosclerotic heart disease of native coronary artery without angina pectoris (principal); R73.03 Prediabetes; I10 Essential (primary) hypertension; Z79.01 Long term (current) use of anticoagulants
CPT/HCPCS: 36415; 80053; 80061; 83036; 85027

== ENCOUNTER → 2020-11-20 08:06 | Outpatient (CLI) | payer MEDICARE, OTHER, SELFPAY ==
[2020-11-20 10:03] LABS: INR 2.6 (0.9-1.3); Prothrombin Time 29.8 SECONDS (10.1-12.7)
[2020-11-20 10:51] LABS: Prostate Specific Antigen Scrn 0.785 ng/mL (0.1-4.0)
== END ==
PROVIDERS: PCP Family Medicine; Referring Provider Family Medicine; Visit Provider Family Medicine
DX: Z12.5 Encounter for screening for malignant neoplasm of prostate (principal); I25.10 Atherosclerotic heart disease of native coronary artery without angina pectoris; I70.209 Unspecified atherosclerosis of native arteries of extremities, unspecified extremity; I82.409 Acute embolism and thrombosis of unspecified deep veins of unspecified lower extremity; Z79.01 Long term (current) use of anticoagulants
CPT/HCPCS: 36415; 85610; G0103

== ENCOUNTER → 2021-11-23 10:56 | Outpatient (CLI) | payer MEDICARE, OTHER, SELFPAY ==
[2021-11-23 13:45] LABS: Add Manual Diff / Slide Review NO; Basophils Absolute Auto 0 /uL (0-100); Basophils Percent Auto 0.5 % (0-2); Eosinophils Absolute Auto 100 /uL (0-450); Hemoglobin 15.9 g/dL (13.5-17.5); Lymphocytes Absolute Auto 1400 /uL (1100-4500); Lymphocytes Percent Auto 22.2 % (25-40); Mean Corpuscular HGB Conc 33.7 % (30-36); Mean Corpuscular Hemoglobin 32.2 PG (26-34); Mean Corpuscular Volume 95.3 fL (80-100); Monocytes Absolute Auto 500 /uL (0-900); Monocytes Percent Auto 8.2 % (3-14); Neutrophils Absolute Auto 4200 /uL (1500-7000); Neutrophils Percent Auto 68.1 % (50-75); Platelet Count 185 X10^3/uL (150-400); Red Blood Cell Count 4.93 X10^6/uL (4.5-5.9); Red Cell Distribution Width 12.9 % (11.6-14.8); White Blood Cell Count 6.2 X10^3/uL (4.5-11.0)
[2021-11-23 13:57] LABS: Hemoglobin A1C% w Est Avg Glu 6.3 % (4.0-6.0)
[2021-11-23 14:16] LABS: Alanine Aminotransferase 28 IU/L (<50); Albumin 4.2 g/dL (3.5-5.0); Albumin Globulin Ratio 1.6 (1.0-2.8); Alkaline Phosphatase 61 U/L (38-126); Aspartate Aminotransferase 31 IU/L (17-59); Bilirubin Total 0.9 mg/dL (0.2-1.3); Blood Urea Nitrogen 15 mg/dL (9-20); Calcium 9.2 mg/dL (8.4-10.2); Carbon Dioxide 30 mmol/L (22-32); Chloride 103 mmol/L (98-107); Cholesterol 189 mg/dL (140-199); Estimated Glomerular Filt Rate > 60.0 mL/min (>60); Globulin 2.7 g/dL (1.7-4.1); Glucose 107 mg/dL (80-110); HDL Cholesterol 49 mg/dL (40-60); HEMOLYSIS < 15 (0-50); LDL Cholesterol Calculated 117 mg/dL (<100); Potassium 4.7 mmol/L (3.4-5.1); Sodium 138 mmol/L (137-145); Total Protein 6.9 g/dL (6.3-8.2); Triglycerides 115 mg/dL (35-150)
[2021-11-23 14:44] LABS: Prostate Specific Antigen Scrn 1.31 ng/mL (0.1-4.0)
== END ==
PROVIDERS: PCP Family Medicine; Referring Provider Family Medicine; Visit Provider Family Medicine
DX: I10 Essential (primary) hypertension (principal); R73.03 Prediabetes; E78.5 Hyperlipidemia, unspecified; Z12.5 Encounter for screening for malignant neoplasm of prostate; Z79.01 Long term (current) use of anticoagulants
CPT/HCPCS: 36415; 80053; 80061; 83036; 85025; G0103

== ENCOUNTER → 2023-01-06 07:44 | Outpatient (CLI) | payer MEDICARE, OTHER, SELFPAY ==
[2023-01-06 08:11] LABS: Add Manual Diff / Slide Review NO; Basophils Absolute Auto 0 /uL (0-100); Basophils Percent Auto 0.5 % (0-2); Eosinophils Absolute Auto 100 /uL (0-450); Eosinophils Percent Auto 1.6 % (2-4); Hematocrit 46.8 % (41-53); Hemoglobin 16.1 g/dL (13.5-17.5); Lymphocytes Absolute Auto 1200 /uL (1100-4500); Mean Corpuscular HGB Conc 34.4 % (30-36); Mean Corpuscular Hemoglobin 32.3 PG (26-34); Mean Corpuscular Volume 93.9 fL (80-100); Monocytes Absolute Auto 500 /uL (0-900); Monocytes Percent Auto 9.6 % (3-14); Neutrophils Absolute Auto 3100 /uL (1500-7000); Neutrophils Percent Auto 63.3 % (50-75); Platelet Count 153 X10^3/uL (150-400); Red Blood Cell Count 4.98 X10^6/uL (4.5-5.9); White Blood Cell Count 4.8 X10^3/uL (4.5-11.0)
[2023-01-06 08:40] LABS: Alanine Aminotransferase 28 IU/L (<50); Albumin 4.1 g/dL (3.5-5.0); Albumin Globulin Ratio 1.6 (1.0-2.8); Alkaline Phosphatase 75 U/L (38-126); Aspartate Aminotransferase 28 IU/L (17-59); BUN Creatinine Ratio 24.1 (6-22); Bilirubin Total 0.9 mg/dL (0.2-1.3); Blood Urea Nitrogen 20 mg/dL (9-20); Calcium 8.9 mg/dL (8.4-10.2); Carbon Dioxide 26 mmol/L (22-32); Chloride 104 mmol/L (98-107); Cholesterol 178 mg/dL (140-199); Estimated Glomerular Filt Rate > 60 mL/min (>60); Globulin 2.6 g/dL (1.7-4.1); Glucose 101 mg/dL (80-110); HDL Cholesterol 53 mg/dL (40-60); HEMOLYSIS < 15 (0-50); LDL Cholesterol Calculated 110 mg/dL (<100); Potassium 3.9 mmol/L (3.4-5.1); Sodium 137 mmol/L (137-145); Total Protein 6.7 g/dL (6.3-8.2); Triglycerides 76 mg/dL (35-150)
[2023-01-06 09:07] LABS: Thyroid Stimulating Hormone 4.33 uIU/mL (0.47-4.68)
== END ==
PROVIDERS: PCP Family Medicine; Referring Provider Family Medicine; Visit Provider Family Medicine
DX: E78.2 Mixed hyperlipidemia (principal); I10 Essential (primary) hypertension
CPT/HCPCS: 36415; 80053; 80061; 84443; 85025

== ENCOUNTER → 2023-01-19 10:05 | Outpatient (CLI) | payer MEDICARE, OTHER, SELFPAY ==
[2023-01-20 15:51] LABS: Labcorp Hemoglobin (Hb) A1c 5.8 % (4.8-5.6)
== END ==
PROVIDERS: PCP Family Medicine; Referring Provider Family Medicine; Visit Provider Family Medicine
DX: R73.03 Prediabetes (principal); I10 Essential (primary) hypertension
CPT/HCPCS: 36415; 83036

== ENCOUNTER → 2023-12-05 09:22 | Outpatient (CLI) | payer MEDICARE, OTHER, SELFPAY ==
[2023-12-05 10:21] LABS: Hematocrit 43.8 % (41-53); Mean Corpuscular HGB Conc 34.2 % (30-36); Mean Corpuscular Hemoglobin 32.5 PG (26-34); Mean Corpuscular Volume 94.9 fL (80-100); Platelet Count 152 X10^3/uL (150-400); Red Blood Cell Count 4.61 X10^6/uL (4.5-5.9); Red Cell Distribution Width 13.4 % (11.6-14.8); White Blood Cell Count 5.1 X10^3/uL (4.5-11.0)
[2023-12-05 10:55] LABS: Alanine Aminotransferase 28 IU/L (<50); Albumin 3.7 g/dL (3.5-5.0); Albumin Globulin Ratio 1.4 (1.0-2.8); Alkaline Phosphatase 70 U/L (38-126); Aspartate Aminotransferase 33 IU/L (17-59); BUN Creatinine Ratio 26.3 (6-22); Blood Urea Nitrogen 21 mg/dL (9-20); Calcium 9.3 mg/dL (8.4-10.2); Carbon Dioxide 27 mmol/L (22-32); Chloride 107 mmol/L (98-107); Cholesterol 148 mg/dL (140-199); Estimated Glomerular Filt Rate > 60 mL/min (>60); Globulin 2.7 g/dL (1.7-4.1); Glucose 97 mg/dL (80-110); HDL Cholesterol 46 mg/dL (40-60); HEMOLYSIS 19 (0-50); LDL Cholesterol Calculated 91 mg/dL (<100); Potassium 4.9 mmol/L (3.4-5.1); Sodium 136 mmol/L (137-145); Total Protein 6.4 g/dL (6.3-8.2); Triglycerides 53 mg/dL (35-150)
[2023-12-05 11:18] LABS: TSH w/ Reflex to FT4 3.61 uIU/mL (0.47-4.68)
== END ==
LOC: LAB 09:23
PROVIDERS: PCP Internal Medicine; Referring Provider Internal Medicine; Visit Provider Internal Medicine
DX: Z86.79 Personal history of other diseases of the circulatory system (principal); E78.2 Mixed hyperlipidemia; I10 Essential (primary) hypertension; I25.10 Atherosclerotic heart disease of native coronary artery without angina pectoris
CPT/HCPCS: 36415; 80053; 80061; 84443; 85027

== ENCOUNTER 2024-04-21 22:02 | Emergency (ER) | payer MEDICARE, OTHER, SELFPAY ==
[2024-04-21 22:05] VITALS: BP 187/88; PULSE 121; RESP 18; TEMP 36.9; O2SAT 99; BMI 27.7
[2024-04-21 22:09] VITALS: PULSE 121; RESP 26; O2SAT 98
--- NOTE | 2024-04-21 22:14 | EKG_ITS ---
[place] [address] [place] [address] Test Date: 2024-04-21 Pat Name: Scott Hines Department: 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
--- NOTE | 2024-04-21 22:19 | DI.RAD.S_ITS ---
PROCEDURE: XR CHEST 1V INDICATIONS: palpitations TECHNIQUE: One view of the chest was acquired. COMPARISON: None. FINDINGS: Surgical changes and devices: Midline sternal wires and mediastinal vascular clips present Lungs and pleura: Lungs are clear. No pleural effusions or pneumothorax. Mediastinum: Mediastinal contours appear normal. Heart size is normal. Bones and chest wall: No suspicious bony lesions. Overlying soft tissues appear unremarkable. IMPRESSION: No acute cardiopulmonary abnormality is seen. Approved by: Mike Mccallum M.D. on 04/21/2024 at 22:24
--- NOTE | 2024-04-21 22:23 | EKG_ITS ---
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
[2024-04-21 22:26] LABS: Add Manual Diff / Slide Review NO; Basophils Absolute Auto 0 /uL (0-100); Basophils Percent Auto 0.4 % (0-2); Eosinophils Absolute Auto 100 /uL (0-450); Eosinophils Percent Auto 1.3 % (2-4); Hematocrit 45.5 % (41-53); Hemoglobin 15.6 g/dL (13.5-17.5); Lymphocytes Absolute Auto 2000 /uL (1100-4500); Lymphocytes Percent Auto 29.7 % (25-40); Mean Corpuscular HGB Conc 34.3 % (30-36); Mean Corpuscular Hemoglobin 32.9 PG (26-34); Mean Corpuscular Volume 95.9 fL (80-100); Monocytes Absolute Auto 600 /uL (0-900); Monocytes Percent Auto 9.6 % (3-14); Neutrophils Absolute Auto 3900 /uL (1500-7000); Platelet Count 154 X10^3/uL (150-400); Red Blood Cell Count 4.74 X10^6/uL (4.5-5.9); Red Cell Distribution Width 13.2 % (11.6-14.8); White Blood Cell Count 6.7 X10^3/uL (4.5-11.0)
[2024-04-21 22:30] VITALS: PULSE 55; RESP 28; O2SAT 97
[2024-04-21 22:32] LABS: INR 2.3 (0.9-1.3); Prothrombin Time 27.2 SECONDS (9.4-12.5)
[2024-04-21 22:36] LABS: Alanine Aminotransferase 24 IU/L (<50); Albumin Globulin Ratio 1.4 (1.0-2.8); Alkaline Phosphatase 82 U/L (38-126); Aspartate Aminotransferase 30 IU/L (17-59); BUN Creatinine Ratio 29.6 (6-22); Bilirubin Total 0.6 mg/dL (0.2-1.3); Blood Urea Nitrogen 24 mg/dL (9-20); Calcium 9.3 mg/dL (8.4-10.2); Carbon Dioxide 20 mmol/L (22-32); Chloride 110 mmol/L (98-107); Creatine Kinase 90 U/L (55-170); Estimated Glomerular Filt Rate > 60 mL/min (>60); Globulin 2.9 g/dL (1.7-4.1); Glucose 107 mg/dL (80-110); HEMOLYSIS 37 (0-50); Magnesium 2.2 mg/dL (1.6-2.3); Potassium 4.2 mmol/L (3.4-5.1); Sodium 137 mmol/L (137-145); Total Protein 6.9 g/dL (6.3-8.2)
--- NOTE | 2024-04-21 22:42 | ED_ITS ---
HPI - Arrhythmia/Palpitations General Chief Complaint: Arrhythmia/Palpitations Stated Complaint: heart racing Time Seen by Provider: 04/21/24 22:03 Source: patient Mode of arrival: Ambulatory History of Present Illness HPI narrative: 78-year-old male with history of coronary artery disease status post CABG 2017, peripheral arterial disease on warfarin presents by private vehicle from home for intermittent fast heart rate for 1 day. Patient states that occasionally when he lays down he can feel his heart race, but it always spontaneously resolved. On his Apple watch that measures his heart rate it will go up as high as 130 beats per minute. Baseline resting heart rate 49-55 beats per minute Related Data Previous Rx's Medication Instructions Recorded clopidogrel 75 mg tablet 75 mg PO DAILY #90 tabs 06/14/23 lisinopril 5 mg tablet See Rx Instructions .Route 06/14/23 .COMPLEX #90 tabs metoprolol succinate 100 mg 150 mg (1.5 x 100 mg) PO DAILY 06/14/23 tablet,extended release 24 hr #135 tabs pravastatin 80 mg tablet 80 mg PO DAILY #90 tabs 06/14/23 warfarin 2 mg tablet See Rx Instructions .Route 02/06/24 .COMPLEX #135 tabs Allergies Allergy/AdvReac Type Severity Reaction Status Date / Time erythromycin base Allergy Severe rash Verified 12/05/23 08:08 [ERYTHROMYCIN BASE] amoxicillin [AMOXICILLIN] Allergy Intermediate Verified 12/05/23 08:08 cephalexin [From KEFLEX] Allergy Intermediate Verified 12/05/23 08:08 Drfpoka-OWM-UhG Reductase Allergy Unknown leg pain Verified 12/05/23 08:08 Inhibitor [XPCGENY-PJV-WKU REDUCTASE INHIBITOR] Patient History Medical History Overweight History of atrial fibrillation less than 8 weeks after coronary artery bypass graft Impaired fasting glucose Mixed hyperlipidemia Peripheral arterial disease Obstructive sleep apnea Shoulder pain (~2016) Rosacea (~1959) Mumps (~1950) Measles (~1950) Chicken pox (~1950) Kidney stones (~2013) Hypertension (~1980) Hyperlipidemia (11/23/17) History of malignant melanoma (11/23/17) Essential hypertension (11/23/17) Coronary artery disease involving [place] coronary artery of [place] heart without angina pectoris (11/23/17) Surgical History S/P CABG x 6 Anesthesia Status post arthroscopy (~11/2007) Arterial occlusion, lower extremity Family History Brother Age: 76 Hypertension High cholesterol Father Hypertension High cholesterol Mother Hypertension High cholesterol Sister Down syndrome Social History marital status: details: (Char), 1 son and daughter (RN REVIEW); retired [employer] household members: spouse lives independently: Yes caregiver/support person: No education level: college occupational status: other current occupational exposures/hazards: No Previous occupational history: retired officer from [employer] Smoking Status: Never smoker alcohol intake: current substance use type: does not use Smoking Status: Never smoker alcohol intake frequency: holidays/special occasions only Substance Use Type: does not use Exam Initial Vital Signs Initial Vital Signs: Vital Signs Temperature 98.5 F 04/21/24 22:05 Pulse Rate 121 H 04/21/24 22:05 Respiratory Rate 18 04/21/24 22:05 Blood Pressure 187/88 H 04/21/24 22:05 Pulse Oximetry 99 04/21/24 22:05 Oxygen Delivery Method Room Air 04/21/24 22:05 Const: Awake, alert, no acute distress, nontoxic appearing Cardiac: Bradycardia, regular rhythm RESP: unlabored, clear bilaterally, no wheezing GI: Soft, nontender, nondistended, no rebound, no guarding MSK: Atraumatic, full range of motion, pulses equal Skin: Warm, Dry, intact, no rashes Neuro: AO x3, CN II-XII grossly intact, moves all extremities Course Orders Ordered: ED Orders 04/21/24 22:09 EKG-12 Lead Stat 04/21/24 22:16 CBC Auto Diff [Complete Blood Count AUTO DIFF] Stat CMP [Comprehensive Metabolic Panel] Stat MAG [Magnesium] Stat PT [Prothrombin Time INR] Stat TSH [Thyroid Stimulating Hormone] Stat Troponin & CK Cardiac Panel Stat 04/21/24 22:19 Chest [XR chest 1V] Stat Vital Signs Vital signs: Vital Signs - 8 hr 04/21/24 22:05 04/21/24 22:09 04/21/24 22:30 Temperature 98.5 F Pulse Rate 121 H 121 H 55 L Respiratory Rate 18 26 H 28 H Blood Pressure 187/88 H Pulse Oximetry 99 98 97 Oxygen Delivery Method Room Air 04/21/24 23:00 04/21/24 23:30 Temperature Pulse Rate 110 H 81 Respiratory Rate 16 22 Blood Pressure Pulse Oximetry 97 96 Oxygen Delivery Method MDM - Arrhythmia/Palpitations Differential Diagnosis Differential diagnosis: Likely palpitations, sinus tachycardia, artial fibrillation and WPW Lab Data 04/21/24 22:16 04/21/24 22:16 Labs: Lab Results 04/21/24 Range/Units 22:16 WBC 6.7 (4.5-11.0) X10^3/uL RBC 4.74 (4.5-5.9) X10^6/uL Hgb 15.6 (13.5-17.5) g/dL Hct 45.5 (41-53) % MCV 95.9 (80-100) fL MCH 32.9 (26-34) PG MCHC 34.3 (30-36) % RDW 13.2 (11.6-14.8) % Plt Count 154 (150-400) X10^3/uL Neut % (Auto) 59.0 (50-75) % Lymph % (Auto) 29.7 (25-40) % Blair % (Auto) 9.6 (3-14) % Eos % (Auto) 1.3 L (2-4) % Baso % (Auto) 0.4 (0-2) % Neut # (Auto) 3900 (6423-9714) /uL Lymph # (Auto) 2000 (6658-3253) /uL Blair # (Auto) 600 (0-900) /uL Eos # (Auto) 100 (0-450) /uL Baso # (Auto) 0 (0-100) /uL PT 27.2 H (9.4-12.5) SECONDS INR 2.3 H (0.9-1.3) Sodium 137 (137-145) mmol/L Potassium 4.2 (3.4-5.1) mmol/L Chloride 110 H (98-107) mmol/L Carbon Dioxide 20 L (22-32) mmol/L BUN 24 H (9-20) mg/dL Creatinine 0.81 (0.66-1.25) mg/dL Estimated GFR > 60 (>60) mL/min BUN/Creatinine Ratio 29.6 H (6-22) Glucose 107 (80-110) mg/dL Calcium 9.3 (8.4-10.2) mg/dL Magnesium 2.2 (1.6-2.3) mg/dL Total Bilirubin 0.6 (0.2-1.3) mg/dL AST 30 (17-59) IU/L ALT 24 (<50) IU/L Alkaline Phosphatase 82 (38-126) U/L Total Creatine Kinase 90 (55-170) U/L Troponin I < 0.012 (0.01-0.034) ng/mL Total Protein 6.9 (6.3-8.2) g/dL Albumin 4.0 (3.5-5.0) g/dL Globulin 2.9 (1.7-4.1) g/dL Albumin/Globulin Ratio 1.4 (1.0-2.8) TSH 5.28 H (0.47-4.68) uIU/mL Imaging Data Chest x-ray: Radiologist's Impresson: PROCEDURE: XR CHEST 1V INDICATIONS: palpitations TECHNIQUE: One view of the chest was acquired. COMPARISON: None. FINDINGS: Surgical changes and devices: Midline sternal wires and mediastinal vascular clips present Lungs and pleura: Lungs are clear. No pleural effusions or pneumothorax. Mediastinum: Mediastinal contours appear normal. Heart size is normal. Bones and chest wall: No suspicious bony lesions. Overlying soft tissues appear unremarkable. IMPRESSION: No acute cardiopulmonary abnormality is seen. Approved by: Mike Mccallum M.D. on 04/21/2024 at 22:24 ECG Data Interpretation: EKG 1: Sinus bradycardia with first-degree AV block, 57 beats per minute, normal ME, no ST T wave changes EKG 2: Wide QRS tachycardia at 122 beats per minute, no ST T wave changes MDM Narrative Medical decision making narrative: Patient with intermittent fast heart rate. Patient's baseline heart rate in the low 50s, and initial EKG sinus bradycardia, however on shelter monitor we do see jumps to 110-115 beats per minute. No P waves obvious on fast EKG. Laboratory work, chest x-ray ordered. Once electrolytes results then plan to contact Cardiology. Laboratory work shows WBC count 6.7, hemoglobin 15.6, platelets 154, sodium 137, potassium 4.2, creatinine 0.81, magnesium 2.2, troponin undetectable. TSH mildly elevated. Patient has continued to flip back and forth from sinus bradycardia to tachycardic rhythm. Discussed patient's case with on-call Cardiology Dr. Mata, who reviewed both the fast and slow EKGs. 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 Unfortunately since the patient's baseline heart rate is already in the low 50s there is no real wiggle room for additional metoprolol to be given. Lab and imaging findings as well as cardiology recommendations discussed with patient at bedside. He states that he will follow up with his primary care doctor for Cardiology referral. A phone number referral has also been given to the patient in the emergency department. Patient was given strict ED return precautions. Discharge Plan Departure Patient Disposition: Home Clinical Impression: Tachy-audrey syndrome Instructions: DI for Arrhythmias Activity Restrictions/Additional Instructions: Your heart rate today changes between a slow rate in the 50s and an elevated rate in the 110s. Cardiology reviewed your EKGs and thinks that you have something called tachy-audrey syndrome. Since you were relatively asymptomatic they believe that this can be treated on an outpatient basis. Unfortunately since your heart rate is already in the low 50s we can not increase your metoprolol at this time. Contact your primary care doctor's office for a follow up appointment. If you notice lightheaded spells, you are passing out, have chest pain, or any other concerning symptoms please return immediately to the emergency department for repeat evaluation. Prescriptions: No Action warfarin 2 mg tablet See Rx Instructions .ROUTE .COMPLEX Qty: 135 3RF Dose Instruction: TAKE 1 AND 1/2 TABLETS BY MOUTH 5 DAYS PER WEEK, THEN TAKE 1 TABLET ONOTHER 2 DAYS. Rx Instructions: TAKE 1 AND 1/2 (3mg) TABLETS BY MOUTH TUESDAY,TUESDAY AND TUESDAY THEN TAKE 1 TABLET (2mg) ALL OTHER DAYS; OR INSTRUCTED. lisinopril 5 mg tablet See Rx Instructions .ROUTE .COMPLEX Qty: 90 3RF Dose Instruction: TAKE 1 TABLET BY MOUTH DAILY Rx Instructions: TAKE 1 TABLET BY MOUTH DAILY metoprolol succinate 100 mg tablet extended release 24 hr 150 mg PO DAILY Qty: 135 3RF pravastatin 80 mg tablet 80 mg PO DAILY Qty: 90 3RF clopidogrel 75 mg tablet 75 mg PO DAILY Qty: 90 3RF Referrals: Von Yadav MD [Primary Care Provider] - Balta Mata MD [Physician] - Stand Alone Forms: Patient Portal/API
[2024-04-21 22:48] LABS: Troponin I < 0.012 ng/mL (0.01-0.034)
[2024-04-21 23:00] VITALS: PULSE 110; RESP 16; O2SAT 97
[2024-04-21 23:13] LABS: Thyroid Stimulating Hormone 5.28 uIU/mL (0.47-4.68)
[2024-04-21 23:30] VITALS: PULSE 81; RESP 22; O2SAT 96
[2024-04-21 23:48] VITALS: BP 159/87; PULSE 111; RESP 10; O2SAT 99
[2024-04-22] VITALS: PULSE 109; RESP 23; O2SAT 98
== END 2024-04-22 00:11 | disposition home or self-care (01) ==
PROVIDERS: Emergency Provider Emergency Medicine; PCP Internal Medicine
DX: I49.5 Sick sinus syndrome (principal)
CPT/HCPCS: 36415; 71045; 80053; 82550; 83735; 84443; 84484; 85025; 85610; 93005; 99283; 99284

== ENCOUNTER → 2024-05-07 07:46 | Outpatient (CLI) | payer MEDICARE, OTHER, SELFPAY | PROVIDERS: PCP Internal Medicine; Referring Provider Physician Assistant; Visit Provider Physician Assistant | DX: R00.2 Palpitations (principal); R00.0 Tachycardia, unspecified; R49.9 Unspecified voice and resonance disorder | CPT/HCPCS: 93246; 93248 ==

== ENCOUNTER → 2024-05-28 06:55 | Outpatient (CLI) | payer MEDICARE, OTHER, SELFPAY ==
--- NOTE | 2024-05-28 06:56 | DI.ECHO.S_ITS ---
[facility] : : [address] : : [place] : : [id number] : : Phone: [phone] Echocardiogram Report + + :Name: JORDANA BRAXTON Study Date: 05/28/2024 Height: 73 in : :Hospital ReadingLocation: Weight: 210 lb : : Gender: Male BSA: 2.2 m2 : :: 1945 Age: 79 yrs BP: 128/83 mmHg: :Reason For Study: PALPITATIONS : :Ordering Physician: ZAIRA, : :BUZZ Ordonez Performed By: Bridger Cordero : :Referring: BUZZ MENESES : + + Interpretation Summary Borderline concentric left ventricular hypertrophy with ejection fraction 55- 60%. The right ventricle is mildly dilated. Right ventricular systolic function is borderline reduced. The right atrium is mildly dilated. The aortic valve is mildly calcified. There is mild mitral annular calcification. Procedure: A two-dimensional transthoracic echocardiogram with color flow and Doppler was performed. The study quality was technically adequate. There is no prior echocardiogram noted for this patient. The heart rate ranged between 49-117 bpm during the study. Left Ventricle: The left ventricle is normal in size. There is borderline concentric left ventricular hypertrophy. The ejection fraction is estimated to be 55-60%. There are no obvious focal wall motion abnormalities noted but poor endocardial definition reduces the sensitivity for the detection of such. Right Ventricle: The right ventricle is mildly dilated. Right ventricular systolic function is borderline reduced. Atria: The left atrial size is normal. The right atrium is mildly dilated. The interatrial septum grossly appears intact with no obvious evidence for an atrial septal defect. Mitral Valve: There is mild mitral annular calcification. The mitral valve leaflets appear borderline thickened, but open well. The mitral valve leaflets appear to open well. There is no mitral valve stenosis. There is trace mitral regurgitation. Aortic Valve: The aortic valve is trileaflet. The aortic valve is mildly calcified. There is no aortic valve stenosis. No aortic regurgitation is present. Tricuspid Valve: The tricuspid valve is normal. There is no tricuspid stenosis. There is mild tricuspid regurgitation. The right ventricular systolic pressure is estimated to be at least 34.4 mmHg based on an estimated right atrial pressure of 8 mm Hg. Pulmonic Valve: The pulmonic valve is not well seen, but is grossly normal. There is no pulmonic valvular stenosis. There is mild pulmonic regurgitation. Great Vessels: The aortic root is mildly dilated. The dimensions of the ascending aorta are normal. The IVC is dilated (diameter is greater than 2.1 cm) yet it collapses greater than 50% with a sniff. This suggests a right atrial pressure of 8 mm Hg. Pericardium/ Pleura There is no pericardial effusion. There is no pleural effusion. MMode/2D Measurements & Calculations LVIDd: 4.2 cm LVOT diam: 2.6 cm LVIDs: 3.0 cm Ao root diam: 3.8 cm FS: 29.1 % asc Aorta Diam: 3.2 cm IVSd: 1.3 cm Ao Arch Diam (Prox Trans): 2.4 cm LVPWd: 1.2 cm LV christianson. diameter/BSA (cm/m^2): 1.9 LV sys. diameter/BSA (cm/m^2): 1.4 LA A2 area: 22.0 cm2 RA long axis: 5.0 cm LA A4 area: 16.7 cm2 RA area: 19.4 cm2 LA length (vol): 5.3 cm RA vol: 63.9 ml LA vol: 58.8 ml RA : 29.1 ml/m2 LA vol index: 26.8 ml/m2 IVC diam: 2.6 cm RVD1 (basal): 4.3 cm RVD2 (mid): 3.7 cm TAPSE: 1.5 cm Doppler Measurements & Calculations Ao V2 max: 172.9 cm/sec LVOT Max Fabrice: 97.2 cm/sec Ao V2 mean: 118.2 cm/sec LV V1 max P.8 mmHg Ao max P.0 mmHg LV V1 VTI: 23.6 cm Ao mean P.3 mmHg LULA(I,D): 3.0 cm2 Ao V2 VTI: 42.3 cm LULA(V,D): 3.0 cm2 sev ratio: 0.56 LULA indexed to BSA (cm^2/m^2): 1.4 MV E max fabrice: 85.3 cm/sec TR max fabrice: 256.8 cm/sec MV A max fabrice: 42.2 cm/sec TR max P.4 mmHg MV E/A: 2.0 PA V2 max: 112.3 cm/sec Med Peak E' Fabrice: 6.0 cm/sec PA V2 mean: 73.8 cm/sec E/E' med: 14.3 PA mean P.5 mmHg Lat Peak E' Fabrice: 7.7 cm/sec PA pr(Accel): 29.3 mmHg E/E' lat: 11.1 E/e' average: 12.7 MV dec time: 0.19 sec SV(LVOT): 126.7 ml Electronically signed by: Jenny osorio Warren Physician:05/28/2024 12:00 PM
== END ==
LOC: ECHO 06:56
PROVIDERS: PCP Internal Medicine; Referring Provider Physician Assistant; Visit Provider Physician Assistant
DX: I49.5 Sick sinus syndrome (principal); I08.1 Rheumatic disorders of both mitral and tricuspid valves; I77.810 Thoracic aortic ectasia
CPT/HCPCS: 93306

== ENCOUNTER → 2024-06-19 09:06 | Outpatient (CLI) | payer MEDICARE, OTHER, SELFPAY ==
[2024-06-19 10:56] LABS: Hemoglobin A1C% w Est Avg Glu 5.5 % (4.0-6.0)
[2024-06-19 11:05] LABS: BUN Creatinine Ratio 25.9 (6-22); Blood Urea Nitrogen 22 mg/dL (9-20); Calcium 9.4 mg/dL (8.4-10.2); Carbon Dioxide 27 mmol/L (22-32); Chloride 104 mmol/L (98-107); Estimated Glomerular Filt Rate > 60 mL/min (>60); Glucose 104 mg/dL (80-110); HEMOLYSIS < 15 (0-50); Potassium 4.4 mmol/L (3.4-5.1); Sodium 137 mmol/L (137-145)
[2024-06-19 11:25] LABS: TSH w/ Reflex to FT4 3.54 uIU/mL (0.47-4.68)
[2024-06-19 11:38] LABS: Prostate Specific Antigen 2.06 ng/mL (0.10-4.00)
== END ==
PROVIDERS: PCP Internal Medicine; Referring Provider Internal Medicine; Visit Provider Internal Medicine
DX: R79.89 Other specified abnormal findings of blood chemistry (principal); N40.1 Benign prostatic hyperplasia with lower urinary tract symptoms; E78.2 Mixed hyperlipidemia; R73.01 Impaired fasting glucose; N13.8 Other obstructive and reflux uropathy
CPT/HCPCS: 36415; 80048; 83036; 84153; 84443

== ENCOUNTER → 2024-12-18 08:56 | Outpatient (CLI) | payer MEDICARE, OTHER, SELFPAY ==
[2024-12-18 10:19] LABS: Hematocrit 43.6 % (41-53); Hemoglobin 14.8 g/dL (13.5-17.5); Mean Corpuscular Hemoglobin 32.2 PG (26-34); Mean Corpuscular Volume 94.7 fL (80-100); Platelet Count 160 X10^3/uL (150-400); Red Blood Cell Count 4.61 X10^6/uL (4.5-5.9); White Blood Cell Count 5.4 X10^3/uL (4.5-11.0)
[2024-12-18 10:36] LABS: Hemoglobin A1C% w Est Avg Glu 5.5 % (4.0-6.0)
[2024-12-18 10:45] LABS: Alanine Aminotransferase 33 IU/L (<50); Albumin 4.1 g/dL (3.5-5.0); Albumin Globulin Ratio 1.8 (1.0-2.8); Alkaline Phosphatase 74 U/L (38-126); Aspartate Aminotransferase 35 IU/L (17-59); BUN Creatinine Ratio 33.3 (6-22); Bilirubin Total 0.8 mg/dL (0.2-1.3); Blood Urea Nitrogen 27 mg/dL (9-20); Carbon Dioxide 24 mmol/L (22-32); Chloride 105 mmol/L (98-107); Cholesterol 173 mg/dL (140-199); Estimated Glomerular Filt Rate > 60 mL/min (>60); Globulin 2.3 g/dL (1.7-4.1); Glucose 115 mg/dL (80-110); HDL Cholesterol 50 mg/dL (40-60); HEMOLYSIS < 15 (0-50); LDL Cholesterol Calculated 111 mg/dL (<100); Potassium 4.4 mmol/L (3.4-5.1); Sodium 136 mmol/L (137-145); Total Protein 6.4 g/dL (6.3-8.2); Triglycerides 62 mg/dL (35-150)
== END ==
PROVIDERS: PCP Internal Medicine; Referring Provider Internal Medicine; Visit Provider Internal Medicine
DX: I10 Essential (primary) hypertension (principal); R73.01 Impaired fasting glucose; E78.2 Mixed hyperlipidemia
CPT/HCPCS: 36415; 80053; 80061; 83036; 85027

== ENCOUNTER → 2025-06-19 09:01 | Outpatient (CLI) | payer MEDICARE, OTHER, SELFPAY ==
[2025-06-19 09:46] LABS: Hematocrit 45.9 % (41-53); Hemoglobin 15.7 g/dL (13.5-17.5); Mean Corpuscular HGB Conc 34.2 % (30-36); Mean Corpuscular Hemoglobin 32.2 PG (26-34); Mean Corpuscular Volume 94.0 fL (80-100); Platelet Count 163 X10^3/uL (150-400)
[2025-06-19 10:02] LABS: Hemoglobin A1C% w Est Avg Glu 5.9 % (4.0-6.0)
[2025-06-19 10:58] LABS: Alanine Aminotransferase 24 IU/L (<50); Albumin 4.2 g/dL (3.5-5.0); Albumin Globulin Ratio 1.7 (1.0-2.8); Alkaline Phosphatase 83 U/L (38-126); Blood Urea Nitrogen 18 mg/dL (9-20); Calcium 9.3 mg/dL (8.4-10.2); Carbon Dioxide 26 mmol/L (22-32); Chloride 102 mmol/L (98-107); Cholesterol 170 mg/dL (140-199); Estimated Glomerular Filt Rate > 60 mL/min (>60); Globulin 2.5 g/dL (1.7-4.1); Glucose 105 mg/dL (70-99); HDL Cholesterol 50 mg/dL (40-60); HEMOLYSIS < 15 (0-50); Potassium 4.7 mmol/L (3.4-5.1); Sodium 135 mmol/L (137-145); Total Protein 6.7 g/dL (6.3-8.2); Triglycerides 78 mg/dL (35-150)
[2025-06-19 11:24] LABS: Prostate Specific Antigen 3.04 ng/mL (0.10-4.00)
== END ==
PROVIDERS: PCP Internal Medicine; Referring Provider Internal Medicine; Visit Provider Internal Medicine
DX: N13.8 Other obstructive and reflux uropathy (principal); R73.01 Impaired fasting glucose; I25.10 Atherosclerotic heart disease of native coronary artery without angina pectoris; N40.1 Benign prostatic hyperplasia with lower urinary tract symptoms; E78.2 Mixed hyperlipidemia
CPT/HCPCS: 36415; 80053; 80061; 83036; 84153; 85027

== ENCOUNTER → 2025-08-03 09:56 | Outpatient (CLI) | payer MEDICARE, OTHER, SELFPAY ==
[2025-08-03 11:08] LABS: Hematocrit 43.8 % (41-53); Hemoglobin 14.9 g/dL (13.5-17.5); Mean Corpuscular HGB Conc 34.1 % (30-36); Mean Corpuscular Hemoglobin 32.0 PG (26-34); Mean Corpuscular Volume 93.8 fL (80-100); Platelet Count 162 X10^3/uL (150-400)
[2025-08-03 11:23] LABS: Blood Urea Nitrogen 19 mg/dL (9-20); Calcium 9.1 mg/dL (8.4-10.2); Carbon Dioxide 28 mmol/L (22-32); Chloride 105 mmol/L (98-107); Estimated Glomerular Filt Rate > 60 mL/min (>60); Glucose 116 mg/dL (70-99); HEMOLYSIS < 15 (0-50); Potassium 5.1 mmol/L (3.4-5.1); Sodium 138 mmol/L (137-145)
== END ==
PROVIDERS: PCP Internal Medicine; Referring Provider Internal Medicine Cardiovascular Disease; Visit Provider Internal Medicine Cardiovascular Disease
DX: I47.19 Other supraventricular tachycardia (principal)
CPT/HCPCS: 36415; 80048; 85027